=== PATIENT | male | born 1945 | race Caucasian/White ===

== ENCOUNTER → 2017-11-29 13:18 | Outpatient (CLI) | payer MEDICARE, SELFPAY ==
[2017-11-26 13:24] VITALS: TEMP 36.4
--- NOTE | 2017-11-29 13:20 | DI.US.S_ITS ---
PROCEDURE: US PERIPH VENOUS LOW EXTREM BI INDICATIONS: Multiple myeloma TECHNIQUE: Real-time imaging, as well as color and pulse Doppler interrogation, were performed of the deep veins of both legs from the inguinal ligament to the popliteal fossa. COMPARISON: None. FINDINGS: There is nonocclusive thrombus within the common femoral vein. The greater saphenous and profunda veins appear patent. Occlusive thrombus appears present within the popliteal and superficial femoral veins. IMPRESSION: Occlusive and nonocclusive thrombus present within the deep veins as above. Dictated by: Christina Suh M.D. on 11/29/2017 at 14:05 Approved by: Christina Suh M.D. on 11/29/2017 at 14:06
--- NOTE | 2017-11-29 16:55 | DI.CT.S_ITS ---
PROCEDURE: CT ANGIO CHEST PE PROTOCOL INDICATIONS: DYSPNEA TECHNIQUE: After the administration of intravenous contrast, 2 mm thick sections acquired from the pulmonary apices to the posterior costophrenic angles. 3-dimensional maximum intensity projection (MIP) coronal and sagittal reformats were then acquired through the thorax. For radiation dose reduction, the following was used: automated exposure control, adjustment of mA and/or kV according to patient size. COMPARISON: [facility], , PERIP VENOUS LOW EXTREM BI, 11/29/2017, 13:35. FINDINGS: Image quality: Excellent. Pulmonary arteries: There are filling defects within the pulmonary arteries bilaterally involving segmental and subsegmental branches within the right upper and lower lobes. On the left there are filling defects within the distal left pulmonary artery extending into segmental and subsegmental branches of the left lower lobe. Findings are consistent with pulmonary embolism. No pulmonary artery enlargement or leftward deviation of the interventricular septum to suggest right heart strain. Lungs and pleura: There is mild dependent atelectasis bilaterally. No definite peripheral wedge-shaped opacities to suggest pulmonary infarcts. No pleural effusions or pneumothorax. Central and peripheral airways are patent. Mediastinum: Heart size is normal, without pericardial effusion. No mediastinal or hilar adenopathy. Thoracic aorta is normal in caliber and enhancement. Esophagus is normal in caliber, without hiatal hernia. Bones and chest wall: No suspicious bony lesions. Ribs and thoracic spine appear intact throughout. No axillary or supraclavicular adenopathy. Abdomen: Visualized upper abdomen demonstrates small intermediate density filling defect within the gallbladder suggestive of noncalcified gallstones or biliary sludge. No gallbladder wall thickening or pericholecystic fluid. There is a nonobstructing stone in the visualized left kidney measuring 3-4 mm. 2 exophytic cysts are also demonstrated within the visualized left kidney. IMPRESSION: 1. Bilateral pulmonary embolism as described without evidence of right heart strain. Findings were discussed with LESIA Perea on 11/29/17 at 5:30 PM. Dictated by: Eduardo Quezada M.D. on 11/29/2017 at 17:21 Approved by: Eduardo Quezada M.D. on 11/29/2017 at 17:33
== END ==
PROVIDERS: Family Provider Family Medicine; PCP Family Medicine; Visit Provider Internal Medicine Hematology & Oncology
DX: I82.412 Acute embolism and thrombosis of left femoral vein (principal); C90.00 Multiple myeloma not having achieved remission; R06.00 Dyspnea, unspecified
CPT/HCPCS: 71275; 93970

== ENCOUNTER 2017-11-29 17:45 | Emergency (ER) | payer MEDICARE, SELFPAY ==
[2017-11-29] VITALS (8 sets, daily range): BP systolic 112–149; BP diastolic 66–101; PULSE 65–88; RESP 16–20; TEMP 36.8; O2SAT 95–100; BMI 37.3
--- NOTE | 2017-11-29 18:01 | ED.SOB ---
HPI - SOB/Dyspnea <Marcie Nick PA-C - Last Filed: 11/29/17 23:31> General Chief Complaint: Shortness of Breath/Dyspnea Stated Complaint: SOB,THINKS PE Time Seen by Provider: 11/29/17 17:57 Source: patient, family and old records reviewed Mode of arrival: ambulatory Limitations: no limitations History of Present Illness This 72-year-old male was sent directly from the [facility] today due to diagnosis of bilateral pulmonary emboli along with left DVT. He was sent to the ED mainly because he was not able to be directly admitted to the hospital. He carries a diagnosis of multiple myeloma. He also has a history of AFib that was ablated in the past and he is not on anticoagulant though has been on aspirin. He states that he has had ongoing fatigue since his diagnosis 7 months ago, has had intermittent dizziness. He states that his fatigue has been worse in the last week and he has poor exercise tolerance, however he has not had any dyspnea. He he was diagnosed with shingles on his right chest and back 7 weeks ago and has pain related to that, otherwise he states he has had no chest pain. He has not had any fever or syncope. He has had swelling in his left ankle which was noted a few days ago at routine Oncology follow-up. He has not had new pain in the extremities nor any other swelling noted. He denies wheeze, vomiting, or any other complaints on systems review, however oncology notes indicate near syncopal episodes and dyspnea. His notes he has seems somewhat short of breath Related Data Home Medications Medication Instructions Recorded Confirmed aspirin 325 mg PO QDAY #0 03/22/17 11/29/17 lisinopril 10 mg PO QDAY #0 03/22/17 11/29/17 metformin [Glucophage] 1,000 mg PO BIDCC #0 03/22/17 11/29/17 metoprolol tartrate 25 mg PO QDAY #0 03/22/17 11/29/17 insulin glargine [Lantus U-100 20 unit SQ QDAY #0 06/14/17 11/29/17 Insulin] torsemide 10 mg Q48H #0 09/06/17 11/29/17 gabapentin [Neurontin] 600 mg PO PRN PRN 11/26/17 11/29/17 Previous Rx's Medication Instructions Recorded allopurinol 300 mg PO QDAY #30 tab 05/10/17 dexamethasone 40 mg PO QWEEK #40 tab 05/10/17 acyclovir [Zovirax] 400 mg PO BID #120 tab 11/09/17 lenalidomide [Revlimid] 25 mg PO QDAY #21 cap 11/09/17 Allergies Allergy/AdvReac Type Severity Reaction Status Date / Time No Known Drug Allergies Allergy Verified 11/29/17 14:48 Review of Systems <Marcie Nick PA-C - Last Filed: 11/29/17 23:31> Review of Systems All systems reviewed & are unremarkable except as noted in HPI and below MDM - SOB/Dyspnea <Marcie Nick PA-C - Last Filed: 11/29/17 23:31> Lab Data Attestation: I reviewed the patient's lab results. Lab Results 11/29/17 Range/Units 14:25 PT 12.7 (10.1-12.7) SECONDS INR 1.2 (0.9-1.3) APTT 28 (26.4-36.2) SECONDS See labs from earlier today--reviewed/stable Imaging Data CT scan - chest: My impression: Radiologist's impression: Patient: Sadi Demarco MR#: [id number] : 1945 Acct:[id number] Age/Sex: 72 / M Date of Service: 11/29/17 Loc: Accession Number: [id number] Procedure: CT angio chest PE protocol Ordering Provider: Tim Wilcox M.D. PROCEDURE: CT ANGIO CHEST PE PROTOCOL INDICATIONS: DYSPNEA TECHNIQUE: After the administration of intravenous contrast, 2 mm thick sections acquired from the pulmonary apices to the posterior costophrenic angles. 3-dimensional maximum intensity projection (MIP) coronal and sagittal reformats were then acquired through the thorax. For radiation dose reduction, the following was used: automated exposure control, adjustment of mA and/or kV according to patient size. COMPARISON: [facility], , PERIP VENOUS LOW EXTREM BI, 11/29/2017, 13:35. FINDINGS: Image quality: Excellent. Pulmonary arteries: There are filling defects within the pulmonary arteries bilaterally involving segmental and subsegmental branches within the right upper and lower lobes. On the left there are filling defects within the distal left pulmonary artery extending into segmental and subsegmental branches of the left lower lobe. Findings are consistent with pulmonary embolism. No pulmonary artery enlargement or leftward deviation of the interventricular septum to suggest right heart strain. Lungs and pleura: There is mild dependent atelectasis bilaterally. No definite peripheral wedge-shaped opacities to suggest pulmonary infarcts. No pleural effusions or pneumothorax. Central and peripheral airways are patent. Mediastinum: Heart size is normal, without pericardial effusion. No mediastinal or hilar adenopathy. Thoracic aorta is normal in caliber and enhancement. Esophagus is normal in caliber, without hiatal hernia. Bones and chest wall: No suspicious bony lesions. Ribs and thoracic spine appear intact throughout. No axillary or supraclavicular adenopathy. Abdomen: Visualized upper abdomen demonstrates small intermediate density filling defect within the gallbladder suggestive of noncalcified gallstones or biliary sludge. No gallbladder wall thickening or pericholecystic fluid. There is a nonobstructing stone in the visualized left kidney measuring 3-4 mm. 2 exophytic cysts are also demonstrated within the visualized left kidney. IMPRESSION: 1. Bilateral pulmonary embolism as described without evidence of right heart strain. Findings were discussed with LESIA Perea on 11/29/17 at 5:30 PM. Dictated by: Eduardo Quezada M.D. on 11/29/2017 at 17:21 Approved by: Eduardo Quezada M.D. on 11/29/2017 at 17:33 <Marcelina Ybarra DO - Last Filed: 11/30/17 18:07> Lab Data Lab Results 11/29/17 Range/Units 14:25 PT 12.7 (10.1-12.7) SECONDS INR 1.2 (0.9-1.3) APTT 28 (26.4-36.2) SECONDS Discharge Plan Departure Patient Disposition: [facility] Clinical Impression: Pulmonary emboli Discharge Date/Time: 11/29/17 22:38 Interventions: ED Discharge Assessment Last Done: 11/29/17 22:32 Prescriptions: No Action aspirin 325 MG tablet 325 mg PO QDAY Qty: 0 RF: 0 lisinopril 10 MG tablet 10 mg PO QDAY Qty: 0 RF: 0 metformin [Glucophage] 1,000 MG tablet 1,000 mg PO BIDCC Qty: 0 RF: 0 metoprolol tartrate 25 MG tablet 25 mg PO QDAY Qty: 0 RF: 0 allopurinol 300 MG tablet 300 mg PO QDAY Qty: 30 RF: 0 dexamethasone 4 MG tablet 40 mg PO QWEEK Qty: 40 RF: 2 insulin glargine [Lantus U-100 Insulin] 100 UNIT/1 ML solution 20 unit SQ QDAY Qty: 0 RF: 0 torsemide 10 MG tablet 10 mg Q48H Qty: 0 RF: 0 acyclovir [Zovirax] 400 MG tablet 400 mg PO BID Qty: 120 RF: 0 lenalidomide [Revlimid] 25 MG capsule 25 mg PO QDAY Qty: 21 RF: 0 gabapentin [Neurontin] 600 MG tablet 600 mg PO PRN PRN (Reason: Pain) RF: 0 Referrals: Florencia Blake ARNP [Advanced Practioner Clinician] - Arnold Yanez MD [Primary Care Provider] -
[2017-11-29 18:28] LABS: INR 1.2 (0.9-1.3); Prothrombin Time 12.7 SECONDS (10.1-12.7)
[2017-11-29 18:31] LABS: PTT Partial Thromboplastin Tim 28 SECONDS (26.4-36.2)
--- NOTE | 2017-11-29 19:02 | ED_ITS ---
HPI - SOB/Dyspnea <Marcie Nick PA-C - Last Filed: 11/29/17 23:31> General Chief Complaint: Shortness of Breath/Dyspnea Stated Complaint: SOB,THINKS PE Time Seen by Provider: 11/29/17 17:57 Source: patient, family and old records reviewed Mode of arrival: ambulatory Limitations: no limitations History of Present Illness This 72-year-old male was sent directly from the [facility] today due to diagnosis of bilateral pulmonary emboli along with left DVT. He was sent to the ED mainly because he was not able to be directly admitted to the hospital. He carries a diagnosis of multiple myeloma. He also has a history of AFib that was ablated in the past and he is not on anticoagulant though has been on aspirin. He states that he has had ongoing fatigue since his diagnosis 7 months ago, has had intermittent dizziness. He states that his fatigue has been worse in the last week and he has poor exercise tolerance, however he has not had any dyspnea. He he was diagnosed with shingles on his right chest and back 7 weeks ago and has pain related to that, otherwise he states he has had no chest pain. He has not had any fever or syncope. He has had swelling in his left ankle which was noted a few days ago at routine Oncology follow-up. He has not had new pain in the extremities nor any other swelling noted. He denies wheeze, vomiting, or any other complaints on systems review, however oncology notes indicate near syncopal episodes and dyspnea. His notes he has seems somewhat short of breath Related Data Home Medications Medication Instructions Recorded Confirmed aspirin 325 mg PO QDAY #0 03/22/17 11/29/17 lisinopril 10 mg PO QDAY #0 03/22/17 11/29/17 metformin [Glucophage] 1,000 mg PO BIDCC #0 03/22/17 11/29/17 metoprolol tartrate 25 mg PO QDAY #0 03/22/17 11/29/17 insulin glargine [Lantus U-100 20 unit SQ QDAY #0 06/14/17 11/29/17 Insulin] torsemide 10 mg Q48H #0 09/06/17 11/29/17 gabapentin [Neurontin] 600 mg PO PRN PRN 11/26/17 11/29/17 Previous Rx's Medication Instructions Recorded allopurinol 300 mg PO QDAY #30 tab 05/10/17 dexamethasone 40 mg PO QWEEK #40 tab 05/10/17 acyclovir [Zovirax] 400 mg PO BID #120 tab 11/09/17 lenalidomide [Revlimid] 25 mg PO QDAY #21 cap 11/09/17 Allergies Allergy/AdvReac Type Severity Reaction Status Date / Time No Known Drug Allergies Allergy Verified 11/29/17 14:48 Review of Systems <Marcie Nick PA-C - Last Filed: 11/29/17 23:31> Review of Systems All systems reviewed & are unremarkable except as noted in HPI and below MDM - SOB/Dyspnea <Marcie Nick PA-C - Last Filed: 11/29/17 23:31> Lab Data Attestation: I reviewed the patient's lab results. Lab Results 11/29/17 Range/Units 14:25 PT 12.7 (10.1-12.7) SECONDS INR 1.2 (0.9-1.3) APTT 28 (26.4-36.2) SECONDS See labs from earlier today--reviewed/stable Imaging Data CT scan - chest: My impression: Radiologist's impression: Patient: Sadi Demarco MR#: [id number] : 1945 Acct:[id number] Age/Sex: 72 / M Date of Service: 11/29/17 Loc: Accession Number: [id number] Procedure: CT angio chest PE protocol Ordering Provider: Tim Wilcox M.D. PROCEDURE: CT ANGIO CHEST PE PROTOCOL INDICATIONS: DYSPNEA TECHNIQUE: After the administration of intravenous contrast, 2 mm thick sections acquired from the pulmonary apices to the posterior costophrenic angles. 3-dimensional maximum intensity projection (MIP) coronal and sagittal reformats were then acquired through the thorax. For radiation dose reduction, the following was used: automated exposure control, adjustment of mA and/or kV according to patient size. COMPARISON: [facility], , PERIP VENOUS LOW EXTREM BI, 11/29/2017, 13: 35. FINDINGS: Image quality: Excellent. Pulmonary arteries: There are filling defects within the pulmonary arteries bilaterally involving segmental and subsegmental branches within the right upper and lower lobes. On the left there are filling defects within the distal left pulmonary artery extending into segmental and subsegmental branches of the left lower lobe. Findings are consistent with pulmonary embolism. No pulmonary artery enlargement or leftward deviation of the interventricular septum to suggest right heart strain. Lungs and pleura: There is mild dependent atelectasis bilaterally. No definite peripheral wedge-shaped opacities to suggest pulmonary infarcts. No pleural effusions or pneumothorax. Central and peripheral airways are patent. Mediastinum: Heart size is normal, without pericardial effusion. No mediastinal or hilar adenopathy. Thoracic aorta is normal in caliber and enhancement. Esophagus is normal in caliber, without hiatal hernia. Bones and chest wall: No suspicious bony lesions. Ribs and thoracic spine appear intact throughout. No axillary or supraclavicular adenopathy. Abdomen: Visualized upper abdomen demonstrates small intermediate density filling defect within the gallbladder suggestive of noncalcified gallstones or biliary sludge. No gallbladder wall thickening or pericholecystic fluid. There is a nonobstructing stone in the visualized left kidney measuring 3-4 mm. 2 exophytic cysts are also demonstrated within the visualized left kidney. IMPRESSION: 1. Bilateral pulmonary embolism as described without evidence of right heart strain. Findings were discussed with LESIA Perea on 11/29/17 at 5:30 PM. Dictated by: Eduardo Quezada M.D. on 11/29/2017 at 17:21 Approved by: Eduardo Quezada M.D. on 11/29/2017 at 17:33 <Marcelina Ybarra DO - Last Filed: 11/30/17 18:07> Lab Data Lab Results 11/29/17 Range/Units 14:25 PT 12.7 (10.1-12.7) SECONDS INR 1.2 (0.9-1.3) APTT 28 (26.4-36.2) SECONDS Discharge Plan Departure Patient Disposition: [facility] Clinical Impression: Pulmonary emboli Discharge Date/Time: 11/29/17 22:38 Interventions: ED Discharge Assessment Last Done: 11/29/17 22:32 Prescriptions: No Action aspirin 325 MG tablet 325 mg PO QDAY Qty: 0 RF: 0 lisinopril 10 MG tablet 10 mg PO QDAY Qty: 0 RF: 0 metformin [Glucophage] 1,000 MG tablet 1,000 mg PO BIDCC Qty: 0 RF: 0 metoprolol tartrate 25 MG tablet 25 mg PO QDAY Qty: 0 RF: 0 allopurinol 300 MG tablet 300 mg PO QDAY Qty: 30 RF: 0 dexamethasone 4 MG tablet 40 mg PO QWEEK Qty: 40 RF: 2 insulin glargine [Lantus U-100 Insulin] 100 UNIT/1 ML solution 20 unit SQ QDAY Qty: 0 RF: 0 torsemide 10 MG tablet 10 mg Q48H Qty: 0 RF: 0 acyclovir [Zovirax] 400 MG tablet 400 mg PO BID Qty: 120 RF: 0 lenalidomide [Revlimid] 25 MG capsule 25 mg PO QDAY Qty: 21 RF: 0 gabapentin [Neurontin] 600 MG tablet 600 mg PO PRN PRN (Reason: Pain) RF: 0 Referrals: Florencia Blake ARNP [Advanced Practioner Clinician] - Arnold Yanez MD [Primary Care Provider] -
[2017-11-29] MEDS: HEPARIN 5,000 UNIT/ML VIAL 10000 UNIT IV (19:14)
[2017-11-29] MEDS: HEPARIN DRIP 25,000 UNIT/500 ML IV.SOLN 40 UNIT IV (19:56)
--- NOTE | 2017-11-29 20:08 | PC.NURSE ---
Heparin infusion double verified with RN Francisco
[2017-11-29] MEDS: LIDOCAINE PATCH 1 EACH ADH..PATCH 2 EACH TOP (21:17)
--- NOTE | 2017-11-29 21:46 | PC.NURSE ---
report given to La YUSUF at [facility]
--- NOTE | 2017-11-29 22:31 | PC.NURSE ---
report given to andriy YUSUF from EMS.
== END 2017-11-29 22:38 | disposition short-term general hospital (02) ==
PROVIDERS: Emergency Provider Internal Medicine; Family Provider Family Medicine; PCP Family Medicine
DX: I26.99 Other pulmonary embolism without acute cor pulmonale (principal)
CPT/HCPCS: 85610; 85730; 93041; 99283; J1644

== ENCOUNTER → 2017-12-27 14:33 | Outpatient (CLI) | payer MEDICARE, SELFPAY ==
[2017-12-27 15:20] LABS: Hematocrit 37.7 % (41-53); Hemoglobin 12.8 g/dL (13.5-17.5); Mean Corpuscular Hemoglobin 30.6 PG (26-34); Platelet Count 150 X10^3/uL (150-400); Red Blood Cell Count 4.18 X10^6/uL (4.5-5.9); Red Cell Distribution Width 17.9 % (11.6-14.8); White Blood Cell Count 5.4 X10^3/uL (4.5-11.0)
[2017-12-27 15:32] LABS: Alanine Aminotransferase 29 IU/L (21-72); Albumin 3.8 g/dL (3.5-5.0); Albumin Globulin Ratio 1.5 (1.0-2.8); Alkaline Phosphatase 98 U/L (38-126); Aspartate Aminotransferase 17 IU/L (17-59); Bilirubin Total 0.5 mg/dL (0.2-1.3); Blood Urea Nitrogen 18 mg/dL (9-20); Calcium 9.1 mg/dL (8.4-10.2); Carbon Dioxide 21 mmol/L (22-32); Chloride 105 mmol/L (98-107); Estimated Glomerular Filt Rate > 60.0 mL/min (>60); Globulin 2.5 g/dL (1.7-4.1); Glucose 134 mg/dL (80-110); HEMOLYSIS < 15 (0-50); Potassium 4.2 mmol/L (3.4-5.1); Sodium 140 mmol/L (137-145); Total Protein 6.3 g/dL (6.3-8.2)
[2017-12-27 15:37] LABS: Neutrophils Absolute Manual 3564 /uL (3000-5900); RBC Morphology Normal Morphology; Total Cells Counted 100
[2017-12-29 14:26] LABS: Free Kappa/ Lambda Ratio 18.44 (0.26-1.65); Free Lambda 9.3 mg/L (5.7-26.3)
[2017-12-31 07:56] LABS: Beta-2-Microglobulin 3.72 mg/L (< 2.52)
[2018-01-01 13:34] LABS: Albumin 3.6 g/dL (3.8-4.8); Alpha 1 Globulin 0.4 g/dL (0.2-0.3); Alpha 2 Globulin 0.7 g/dL (0.5-0.9); Beta 1 Globulin 0.4 g/dL (0.4-0.6); Gamma Globulin 0.2 g/dL (0.8-1.7); Protein, Total 5.7 g/dL (6.1-8.1)
--- NOTE | 2018-01-03 12:38 | ONC.NAV ---
Description: Revlimid Renewal Request Activity: Received fax from [facility] for pt's monthly Revlimid renewal. LESIA Perea completed it and OPHTHALMIC SURGEON faxed it back to [facility].
== END ==
PROVIDERS: Family Provider Family Medicine; PCP Family Medicine; Visit Provider Nurse Practitioner Gerontology
DX: C90.00 Multiple myeloma not having achieved remission (principal)
CPT/HCPCS: 36415; 80053; 82232; 83883; 84155; 84165; 85025

== ENCOUNTER → 2018-01-24 14:01 | Outpatient (CLI) | payer MEDICARE, SELFPAY ==
[2018-01-24 14:26] LABS: Add Manual Diff / Slide Review NO; Basophils Percent Auto 0.4 % (0-2); Eosinophils Percent Auto 2.9 % (2-4); Hematocrit 39.7 % (41-53); Hemoglobin 13.3 g/dL (13.5-17.5); Mean Corpuscular HGB Conc 33.6 % (30-36); Mean Corpuscular Hemoglobin 30.2 PG (26-34); Mean Corpuscular Volume 89.9 fL (80-100); Monocytes Percent Auto 11.8 % (3-14); Neutrophils Absolute Auto 3100 /uL (3000-5900); Neutrophils Percent Auto 63.9 % (50-75); Platelet Count 147 X10^3/uL (150-400); Red Blood Cell Count 4.41 X10^6/uL (4.5-5.9); Red Cell Distribution Width 16.5 % (11.6-14.8); White Blood Cell Count 4.8 X10^3/uL (4.5-11.0)
[2018-01-24 14:37] LABS: Alanine Aminotransferase 29 IU/L (21-72); Albumin 3.9 g/dL (3.5-5.0); Albumin Globulin Ratio 1.6 (1.0-2.8); Alkaline Phosphatase 93 U/L (38-126); Aspartate Aminotransferase 17 IU/L (17-59); Bilirubin Total 0.5 mg/dL (0.2-1.3); Blood Urea Nitrogen 22 mg/dL (9-20); Calcium 9.4 mg/dL (8.4-10.2); Carbon Dioxide 20 mmol/L (22-32); Chloride 105 mmol/L (98-107); Estimated Glomerular Filt Rate > 60.0 mL/min (>60); Globulin 2.4 g/dL (1.7-4.1); Glucose 137 mg/dL (80-110); HEMOLYSIS < 15 (0-50); Potassium 3.7 mmol/L (3.4-5.1); Sodium 139 mmol/L (137-145); Total Protein 6.3 g/dL (6.3-8.2)
[2018-01-27 16:37] LABS: Free Kappa Light Chain 191.4 mg/L (3.3-19.4); Free Kappa/ Lambda Ratio 20.79 (0.26-1.65); Free Lambda 9.2 mg/L (5.7-26.3)
[2018-01-28 00:09] LABS: Albumin 3.7 g/dL (3.8-4.8); Alpha 1 Globulin 0.3 g/dL (0.2-0.3); Alpha 2 Globulin 0.7 g/dL (0.5-0.9); Beta 1 Globulin 0.5 g/dL (0.4-0.6); Gamma Globulin 0.2 g/dL (0.8-1.7); Protein, Total 5.8 g/dL (6.1-8.1)
== END ==
PROVIDERS: Family Provider Family Medicine; PCP Family Medicine; Visit Provider Internal Medicine Hematology & Oncology
DX: C90.00 Multiple myeloma not having achieved remission (principal)
CPT/HCPCS: 36415; 80053; 83883; 84155; 84165; 85025

== ENCOUNTER → 2018-03-29 11:00 | Outpatient (CLI) | payer MEDICARE, SELFPAY ==
[2018-03-29 11:33] LABS: Add Manual Diff / Slide Review NO; Basophils Percent Auto 0.8 % (0-2); Eosinophils Percent Auto 2.3 % (2-4); Hematocrit 38.4 % (41-53); Hemoglobin 12.9 g/dL (13.5-17.5); Lymphocytes Percent Auto 15.7 % (25-40); Mean Corpuscular HGB Conc 33.7 % (30-36); Mean Corpuscular Hemoglobin 30.5 PG (26-34); Mean Corpuscular Volume 90.5 fL (80-100); Monocytes Percent Auto 7.4 % (3-14); Neutrophils Absolute Auto 2400 /uL (3000-5900); Neutrophils Percent Auto 73.8 % (50-75); Platelet Count 94 X10^3/uL (150-400); Red Blood Cell Count 4.24 X10^6/uL (4.5-5.9); Red Cell Distribution Width 17.5 % (11.6-14.8); White Blood Cell Count 3.3 X10^3/uL (4.5-11.0)
[2018-03-29 11:46] LABS: Alanine Aminotransferase 38 IU/L (21-72); Albumin 3.9 g/dL (3.5-5.0); Albumin Globulin Ratio 1.8 (1.0-2.8); Alkaline Phosphatase 86 U/L (38-126); Aspartate Aminotransferase 24 IU/L (17-59); BUN Creatinine Ratio 20.8 (6-22); Bilirubin Total 0.9 mg/dL (0.2-1.3); Blood Urea Nitrogen 25 mg/dL (9-20); Calcium 8.7 mg/dL (8.4-10.2); Carbon Dioxide 21 mmol/L (22-32); Chloride 105 mmol/L (98-107); Estimated Glomerular Filt Rate 59.3 mL/min (>60); Globulin 2.2 g/dL (1.7-4.1); Glucose 198 mg/dL (80-110); HEMOLYSIS < 15 (0-50); Lactate Dehydrogenase 421 U/L (313-618); Potassium 4.1 mmol/L (3.4-5.1); Sodium 138 mmol/L (137-145); Total Protein 6.1 g/dL (6.3-8.2)
[2018-03-29 12:05] LABS: Cholesterol 178 mg/dL (140-199); HDL Cholesterol 60 mg/dL (40-60); LDL Cholesterol Calculated 98 mg/dL (<100); Triglycerides 100 mg/dL (35-150)
--- NOTE | 2018-03-29 12:28 | PC.NURSE ---
Pre visit labs appear stable. Provider visit on 04/07
[2018-03-30 15:20] LABS: Free Kappa Light Chain 123.3 mg/L (3.3-19.4); Free Kappa/ Lambda Ratio 12.08 (0.26-1.65); Free Lambda 10.2 mg/L (5.7-26.3)
[2018-03-31 07:48] LABS: Beta-2-Microglobulin 3.72 mg/L (< 2.52)
[2018-04-02 09:08] LABS: Immunoglobulin A 150 mg/dL (81-463); Immunoglobulin G, Quantitative 176 mg/dL (694-1618); Immunoglobulin M, Quantitative 13 mg/dL (48-271)
[2018-04-02 14:02] LABS: Albumin 3.6 g/dL (3.8-4.8); Alpha 1 Globulin 0.3 g/dL (0.2-0.3); Alpha 2 Globulin 0.7 g/dL (0.5-0.9); Beta 1 Globulin 0.4 g/dL (0.4-0.6); Gamma Globulin 0.2 g/dL (0.8-1.7); Protein, Total 5.6 g/dL (6.1-8.1)
== END ==
PROVIDERS: Family Provider Family Medicine; PCP Family Medicine; Visit Provider Internal Medicine Hematology & Oncology
DX: E11.9 Type 2 diabetes mellitus without complications (principal)
CPT/HCPCS: 36415; 80053; 80061; 82232; 82784; 83036; 83615; 83883; 84155; 84165; 85025

== ENCOUNTER → 2018-04-25 14:12 | Outpatient (CLI) | payer MEDICARE, SELFPAY ==
[2018-04-25 15:16] LABS: Add Manual Diff / Slide Review NO; Basophils Percent Auto 0.5 % (0-2); Eosinophils Percent Auto 3.3 % (2-4); Hematocrit 36.6 % (41-53); Hemoglobin 12.5 g/dL (13.5-17.5); Lymphocytes Percent Auto 20.1 % (25-40); Mean Corpuscular HGB Conc 34.1 % (30-36); Mean Corpuscular Hemoglobin 30.8 PG (26-34); Mean Corpuscular Volume 90.3 fL (80-100); Monocytes Percent Auto 11.8 % (3-14); Neutrophils Absolute Auto 2200 /uL (3000-5900); Neutrophils Percent Auto 64.3 % (50-75); Platelet Count 109 X10^3/uL (150-400); Red Blood Cell Count 4.05 X10^6/uL (4.5-5.9); Red Cell Distribution Width 17.4 % (11.6-14.8); White Blood Cell Count 3.4 X10^3/uL (4.5-11.0)
[2018-04-25 15:38] LABS: Alanine Aminotransferase 37 IU/L (21-72); Albumin 3.7 g/dL (3.5-5.0); Albumin Globulin Ratio 1.7 (1.0-2.8); Alkaline Phosphatase 77 U/L (38-126); Aspartate Aminotransferase 23 IU/L (17-59); BUN Creatinine Ratio 19.2 (6-22); Bilirubin Total 0.5 mg/dL (0.2-1.3); Blood Urea Nitrogen 25 mg/dL (9-20); Calcium 9.4 mg/dL (8.4-10.2); Carbon Dioxide 22 mmol/L (22-32); Chloride 106 mmol/L (98-107); Estimated Glomerular Filt Rate 54.1 mL/min (>60); Globulin 2.2 g/dL (1.7-4.1); Glucose 115 mg/dL (80-110); HEMOLYSIS 17 (0-50); Lactate Dehydrogenase 418 U/L (313-618); Potassium 3.7 mmol/L (3.4-5.1); Sodium 141 mmol/L (137-145); Total Protein 5.9 g/dL (6.3-8.2)
[2018-04-27 13:39] LABS: Free Kappa/ Lambda Ratio 13.14 (0.26-1.65); Free Lambda 11.1 mg/L (5.7-26.3)
[2018-04-27 14:03] LABS: Immunoglobulin A 147 mg/dL (81-463); Immunoglobulin G, Quantitative 160 mg/dL (694-1618); Immunoglobulin M, Quantitative 12 mg/dL (48-271)
[2018-04-28 15:21] LABS: Beta-2-Microglobulin 4.33 mg/L (< 2.52)
[2018-04-29 15:34] LABS: Albumin 3.5 g/dL (3.8-4.8); Alpha 1 Globulin 0.4 g/dL (0.2-0.3); Alpha 2 Globulin 0.7 g/dL (0.5-0.9); Beta 1 Globulin 0.4 g/dL (0.4-0.6); Gamma Globulin 0.2 g/dL (0.8-1.7); Protein, Total 5.5 g/dL (6.1-8.1)
== END ==
PROVIDERS: Family Provider Family Medicine; PCP Family Medicine; Visit Provider Internal Medicine Hematology & Oncology
DX: C90.00 Multiple myeloma not having achieved remission (principal)
CPT/HCPCS: 36415; 80053; 82232; 82784; 83615; 83883; 84155; 84165; 85025

== ENCOUNTER → 2018-09-26 15:29 | Outpatient (CLI) | payer MEDICARE, SELFPAY | PROVIDERS: Family Provider Family Medicine; PCP Family Medicine; Visit Provider Internal Medicine Hematology & Oncology | DX: C90.00 Multiple myeloma not having achieved remission (principal); Z86.718 Personal history of other venous thrombosis and embolism; Z79.01 Long term (current) use of anticoagulants | CPT/HCPCS: 80053; 82232; 82784; 83615; 83883; 84155; 84165; 85025; 86334 ==

== ENCOUNTER → 2018-10-17 13:42 | Outpatient (CLI) | payer MEDICARE, SELFPAY | PROVIDERS: PCP Family Medicine; Visit Provider Internal Medicine Hematology & Oncology | DX: Z00.00 Encounter for general adult medical examination without abnormal findings (principal) | CPT/HCPCS: 83883 ==

== ENCOUNTER → 2018-12-26 13:24 | Outpatient (CLI) | payer MEDICARE, SELFPAY ==
[2018-12-26 13:57] LABS: Add Manual Diff / Slide Review NO; Basophils Absolute Auto 0 /uL (0-100); Basophils Percent Auto 0.4 % (0-2); Eosinophils Absolute Auto 0 /uL (0-450); Eosinophils Percent Auto 0.6 % (2-4); Hematocrit 42.4 % (41-53); Hemoglobin 14.5 g/dL (13.5-17.5); Lymphocytes Absolute Auto 1700 /uL (1100-4500); Lymphocytes Percent Auto 28.2 % (25-40); Mean Corpuscular HGB Conc 34.2 % (30-36); Mean Corpuscular Hemoglobin 32.5 PG (26-34); Monocytes Absolute Auto 400 /uL (0-900); Monocytes Percent Auto 6.6 % (3-14); Neutrophils Absolute Auto 3900 /uL (1500-7000); Neutrophils Percent Auto 64.2 % (50-75); Platelet Count 167 X10^3/uL (150-400); Red Blood Cell Count 4.46 X10^6/uL (4.5-5.9); Red Cell Distribution Width 15.2 % (11.6-14.8); White Blood Cell Count 6.1 X10^3/uL (4.5-11.0)
[2018-12-26 15:01] LABS: Alanine Aminotransferase 27 IU/L (21-72); Albumin 4.1 g/dL (3.5-5.0); Albumin Globulin Ratio 1.7 (1.0-2.8); Alkaline Phosphatase 73 U/L (38-126); Aspartate Aminotransferase 22 IU/L (17-59); BUN Creatinine Ratio 22.5 (6-22); Bilirubin Total 0.6 mg/dL (0.2-1.3); Blood Urea Nitrogen 27 mg/dL (9-20); Calcium 10.7 mg/dL (8.4-10.2); Carbon Dioxide 23 mmol/L (22-32); Chloride 106 mmol/L (98-107); Estimated Glomerular Filt Rate 59.2 mL/min (>60); Globulin 2.4 g/dL (1.7-4.1); Glucose 128 mg/dL (80-110); HEMOLYSIS < 15 (0-50); Lactate Dehydrogenase 368 U/L (313-618); Potassium 4.4 mmol/L (3.4-5.1); Sodium 139 mmol/L (137-145); Total Protein 6.5 g/dL (6.3-8.2)
[2018-12-28 13:53] LABS: Beta-2-Microglobulin 3.03 mg/L (< 2.52)
[2018-12-29 07:39] LABS: Immunoglobulin A 722 mg/dL (81-463); Immunoglobulin G, Quantitative 289 mg/dL (694-1618); Immunoglobulin M, Quantitative 19 mg/dL (48-271)
[2018-12-30 13:53] LABS: Albumin 3.9 g/dL (3.8-4.8); Alpha 1 Globulin 0.2 g/dL (0.2-0.3); Alpha 2 Globulin 0.6 g/dL (0.5-0.9); Beta 1 Globulin 0.5 g/dL (0.4-0.6); Gamma Globulin 0.3 g/dL (0.8-1.7); Protein, Total 6.3 g/dL (6.1-8.1)
[2018-12-30 16:02] LABS: Free Kappa Light Chain 532.8 mg/L (3.3-19.4)
== END ==
PROVIDERS: PCP Family Medicine; Visit Provider Internal Medicine Hematology & Oncology
DX: C90.00 Multiple myeloma not having achieved remission (principal)
CPT/HCPCS: 36415; 80053; 82232; 82784; 83615; 83883; 84155; 84165; 85025; 86334

== ENCOUNTER 2019-01-31 06:59 | Day surgery (SDC) | payer MEDICARE, SELFPAY ==
[2019-01-31] MEDS: PROPARACAINE 0.5% OPHTH SOL 2 DROPS EYE-OP (07:27)
[2019-01-31] MEDS: CATARACT EYE COMPOUND (10 DROPS/SYRINGE) 3 DROPS EYE-OP (07:34)
[2019-01-31 07:35] VITALS: BMI 29.8
[2019-01-31 07:50] VITALS: BP 147/89; PULSE 62; RESP 15; TEMP 36.3; O2SAT 96
--- NOTE | 2019-01-31 08:08 | PM.PREOP ---
Pre-operative Note Interval Note History & Physical reviewed/Exam performed by Physician: No Changes to H&P: No
--- NOTE | 2019-01-31 08:09 | PM.OP.1 ---
Operative Date/Time/Diagnoses Pre-op diagnosis: Nuclear Cataract Left eye Post-op diagnosis: same Procedure & Clinicians Surgeon: Walter Lorenz Anesthesia Type: MAC +/- and Sedation Operative Notes Procedure in detail: Patient brought to the operating suite. Tetracaine drops placed in the left eye. Patient was prepped and draped in sterile manner. Wire lid speculum was placed in the eye. Betadine drops were placed on the eye. This was irrigated. Lidocaine jelly was placed on the eye. A paracentesis port was created with a side-port blade. 0.1 mL 1% preservative free lidocaine was injected into the anterior chamber. The anterior chamber was deepened with viscoelastic. 2.6 mm keratome was used to create a temporal clear corneal incision. Cystotome and Utrata forceps were used to create continuous tear capsulorrhexis. Balanced salt solution was used to hydro dissect the nucleus. The phacoemulsification handpiece was inserted and the nucleus was removed using the stop and chop technique. The irrigation aspiration handpiece was inserted and the remaining cortex was removed. Anterior chamber was deepened with viscoelastic. An Mercedes [id number] intraocular lens with a power of 18.0 was injected into the capsular bag. Irrigation aspiration handpiece was inserted and the remaining viscoelastic was removed. Incision was hydrated with balanced salt solution and found to be leak free with pressure with Weck-Elaina sponges. 0.1 mL Vigamox injected anterior chamber. 0.3 mL Kenalog 10 mg was injected subconjunctivally. Lid speculum was removed. The patient left the operating room in excellent condition. Complications: none Condition: stable Disposition: same day surgery
[2019-01-31] MEDS: CHONDROIDTIN/SOD HYALURONATE 1.05 ML SYRINGE INTRAOCULA (08:31)
[2019-01-31] MEDS: TRIAMCINOLONE 50 MG/5 ML VIAL INJ (08:31)
[2019-01-31] MEDS: MOXIFLOXACIN OPHTH DROPS 3 ML BOTTLE 2 DROPS INJ (08:31)
[2019-01-31] MEDS: LIDOCAINE JELLY 2% 5 ML 1 APPLIC TOP (08:31)
[2019-01-31] MEDS: PHENYLEPHRINE/LIDOCAINE VIAL (OR) 0.2 ML EYE-OP (08:31)
[2019-01-31] MEDS: TETRACAINE 0.5% OPHTH DROPS 4 ML 2 DROPS EYE-OP (08:32)
[2019-01-31] MEDS: BALANCED SALT IRRIG SOLN NO.2 500 ML, EPINEPHrine 1 MG IRR (08:32)
[2019-01-31 08:45] VITALS: BP 128/82; PULSE 58; RESP 16; TEMP 36.3; O2SAT 97
[2019-01-31 09:00] VITALS: BP 127/80; PULSE 59; RESP 15; TEMP 36.3; O2SAT 95
== END 2019-01-31 09:05 | disposition home or self-care (01) ==
LOC: OR 07:01
PROVIDERS: Family Provider Family Medicine; PCP Family Medicine; Visit Provider Ophthalmology
PROC: (CPT 66984; principal; 2019-01-31 08:15)
DX: H25.12 Age-related nuclear cataract, left eye (principal); E11.9 Type 2 diabetes mellitus without complications
CPT/HCPCS: 66984; J0171; J2250; J3010; J3301

== ENCOUNTER 2019-02-14 06:21 | Day surgery (SDC) | payer MEDICARE, SELFPAY ==
[2019-02-14] MEDS: PROPARACAINE 0.5% OPHTH SOL 2 DROPS EYE-OP (07:05)
[2019-02-14] MEDS: CATARACT EYE COMPOUND (10 DROPS/SYRINGE) 3 DROPS EYE-OP (07:13)
[2019-02-14 07:15] VITALS: BMI 31.1
[2019-02-14 07:18] VITALS: BP 149/90; PULSE 56; RESP 16; TEMP 36.2; O2SAT 96
--- NOTE | 2019-02-14 07:41 | PM.PREOP ---
Pre-operative Note Interval Note History & Physical reviewed/Exam performed by Physician: No Changes to H&P: No
--- NOTE | 2019-02-14 07:41 | PM.OP.1 ---
Operative Date/Time/Diagnoses Pre-op diagnosis: Nuclear cataract right eye Procedure & Clinicians Procedure: Cataract Surgery Same procedure as scheduled: Yes Surgeon: Walter Lorenz Anesthesia Type: MAC +/- and Sedation Operative Notes Procedure in detail: Patient brought to the operating suite. Tetracaine drops placed in the right eye. Patient was prepped and draped in sterile manner. Wire lid speculum was placed in the eye. Betadine drops were placed on the eye. This was irrigated. Lidocaine jelly was placed on the eye. A paracentesis port was created with a side-port blade. 0.1 mL 1% preservative free lidocaine was injected into the anterior chamber. The anterior chamber was deepened with viscoelastic. 2.6 mm keratome was used to create a temporal clear corneal incision. Cystotome and Utrata forceps were used to create continuous tear capsulorrhexis. Balanced salt solution was used to hydro dissect the nucleus. The phacoemulsification handpiece was inserted and the nucleus was removed using the stop and chop technique. The irrigation aspiration handpiece was inserted and the remaining cortex was removed. Anterior chamber was deepened with viscoelastic. An Mercedes [id number] intraocular lens with a power of 18.0 was injected into the capsular bag. Irrigation aspiration handpiece was inserted and the remaining viscoelastic was removed. Incision was hydrated with balanced salt solution and found to be leak free with pressure with Weck-Elaina sponges. 0.1 mL Vigamox injected anterior chamber. 0.3 mL Kenalog 10 mg was injected subconjunctivally. Lid speculum was removed. The patient left the operating room in excellent condition. Complications: none Condition: stable Disposition: same day surgery
--- NOTE | 2019-02-14 07:54 | SUR.OPER ---
Supine on eye stretcher, head on extension cradle secured with tape. Arms tucked at sides with blanket. Pillow under knees.
[2019-02-14] MEDS: MOXIFLOXACIN OPHTH DROPS 3 ML BOTTLE 2 DROPS INJ (07:56)
[2019-02-14] MEDS: PHENYLEPHRINE/LIDOCAINE VIAL (OR) 0.2 ML EYE-OP (07:56)
[2019-02-14] MEDS: TRIAMCINOLONE 50 MG/5 ML VIAL INJ (07:56)
[2019-02-14] MEDS: TETRACAINE 0.5% OPHTH DROPS 4 ML 2 DROPS EYE-OP (07:57)
[2019-02-14] MEDS: LIDOCAINE JELLY 2% 5 ML 1 APPLIC TOP (07:57)
[2019-02-14] MEDS: CHONDROIDTIN/SOD HYALURONATE 1.05 ML SYRINGE INTRAOCULA (07:57)
[2019-02-14] MEDS: BALANCED SALT IRRIG SOLN NO.2 500 ML, EPINEPHrine 1 MG IRR (07:58)
[2019-02-14 08:10] VITALS: BP 130/79; PULSE 56; RESP 16; TEMP 36.2; O2SAT 97
== END 2019-02-14 08:16 | disposition home or self-care (01) ==
PROVIDERS: Family Provider Family Medicine; PCP Family Medicine; Visit Provider Ophthalmology
PROC: (CPT 66984; principal; 2019-02-14 07:45)
DX: H25.11 Age-related nuclear cataract, right eye (principal); E11.9 Type 2 diabetes mellitus without complications; Z79.4 Long term (current) use of insulin; Z86.711 Personal history of pulmonary embolism; I50.9 Heart failure, unspecified
CPT/HCPCS: 66984; J0171; J2250; J3301

== ENCOUNTER → 2019-02-22 10:07 | Outpatient (CLI) | payer MEDICARE, SELFPAY ==
[2019-02-22 11:05] LABS: Add Manual Diff / Slide Review NO; Basophils Absolute Auto 0 /uL (0-100); Basophils Percent Auto 0.3 % (0-2); Eosinophils Absolute Auto 0 /uL (0-450); Eosinophils Percent Auto 0.5 % (2-4); Hematocrit 43.9 % (41-53); Hemoglobin 14.7 g/dL (13.5-17.5); Lymphocytes Absolute Auto 1800 /uL (1100-4500); Mean Corpuscular HGB Conc 33.4 % (30-36); Mean Corpuscular Hemoglobin 32.6 PG (26-34); Mean Corpuscular Volume 97.6 fL (80-100); Monocytes Absolute Auto 400 /uL (0-900); Monocytes Percent Auto 7.8 % (3-14); Neutrophils Absolute Auto 3400 /uL (1500-7000); Neutrophils Percent Auto 59.4 % (50-75); Platelet Count 166 X10^3/uL (150-400); Red Cell Distribution Width 14.2 % (11.6-14.8); White Blood Cell Count 5.8 X10^3/uL (4.5-11.0)
[2019-02-22 11:20] LABS: Alanine Aminotransferase 27 IU/L (21-72); Albumin 4.1 g/dL (3.5-5.0); Albumin Globulin Ratio 1.4 (1.0-2.8); Alkaline Phosphatase 70 U/L (38-126); Aspartate Aminotransferase 28 IU/L (17-59); BUN Creatinine Ratio 22.1 (6-22); Bilirubin Total 0.7 mg/dL (0.2-1.3); Blood Urea Nitrogen 31 mg/dL (9-20); Calcium 10.6 mg/dL (8.4-10.2); Carbon Dioxide 24 mmol/L (22-32); Chloride 102 mmol/L (98-107); Estimated Glomerular Filt Rate 49.5 mL/min (>60); Globulin 2.9 g/dL (1.7-4.1); Glucose 137 mg/dL (80-110); HEMOLYSIS < 15 (0-50); Potassium 4.5 mmol/L (3.4-5.1); Sodium 138 mmol/L (137-145)
[2019-02-24 12:47] LABS: Free Kappa Light Chain 749.1 mg/L (3.3-19.4); Free Kappa/ Lambda Ratio 114.02 (0.26-1.65); Free Lambda 6.6 mg/L (5.7-26.3)
[2019-02-24 14:10] LABS: Immunoglobulin A 878 mg/dL (20-320)
[2019-02-25 14:18] LABS: Abnormal Protein Band 1 0.7 g/dL (NONE DETECTED); Albumin 3.8 g/dL (3.8-4.8); Alpha 1 Globulin 0.2 g/dL (0.2-0.3); Alpha 2 Globulin 0.6 g/dL (0.5-0.9); Beta 1 Globulin 0.5 g/dL (0.4-0.6); Gamma Globulin 0.6 g/dL (0.8-1.7); Protein, Total 6.3 g/dL (6.1-8.1)
== END ==
PROVIDERS: Family Provider Family Medicine; PCP Family Medicine
DX: C90.00 Multiple myeloma not having achieved remission (principal)
CPT/HCPCS: 36415; 80053; 82784; 83883; 84155; 84165; 85025; 86334

== ENCOUNTER → 2019-05-26 13:50 | Outpatient (CLI) | payer MEDICARE, SELFPAY ==
--- NOTE | 2019-05-26 | DI.ECHO.S_ITS ---
[facility] +---------+ : : [address] : [place] : : : : [phone] : : : : Phone: [phone]+ Echocardiogram Report + + :Name: KAYLEN VASQUEZ Study Date: 05/26/2019 Height: 76 in : :[facility] Weight: 251 lb : : Gender: Male BSA: 2.4 m2 : :: 1945 Age: 73 yrs BP: 132/82 mmHg: :Reason For Study: Aortic, Descending Aneurysm : :Ordering Physician: Molly Dickerson : :Pj Carballo Performed By: Bonita Cordero : :Referring: Dr. Arnold Yanez : + + Interpretation Summary 1) Mildly increased left ventricular thickness (concentric), wall motion, and systolic function (EF 55-60%). 2) The right ventricle is mildly dilated. The right ventricular systolic function is normal. 3) No significant valvular abnormalities. 4) The aortic root is borderline dilated at 4.0cm. 5) There is mild luminal irregularity and echogenicity in the abdominal aorta, suggestive of aortic atherosclerotic disease. 6) Compared to the Echo done 09/06/2017, no significant change. Procedure: A two-dimensional transthoracic echocardiogram with color flow and Doppler was performed. The study quality was technically adequate. Comparison is made with the echocardiogram of 2-12-18. The patient was in normal sinus rhythm during the exam. Left Ventricle: The left ventricle is normal in size. There is mild concentric left ventricular hypertrophy. The ejection fraction is estimated to be 55-60%. Left ventricular systolic function is normal without focal wall motion abnormalities. Diastolic function could not be accurately assessed due to unobtainable data. Right Ventricle: The right ventricle is mildly dilated. The right ventricular systolic function is normal. Atria: The left atrium is moderately dilated. Right atrial size is normal. The interatrial septum is intact with no evidence for an atrial septal defect. Mitral Valve: The mitral valve leaflets are mildly calcified. There is mild mitral annular calcification. There is trace mitral regurgitation. Aortic Valve: The aortic valve is trileaflet. The aortic valve opens well. There is mild aortic valve sclerosis. There is no aortic valve stenosis. No aortic regurgitation is present. Tricuspid Valve: The tricuspid valve is normal in structure and function. No tricuspid regurgitation. Pulmonic Valve: The pulmonic valve is normal in structure and function. There is trace pulmonic regurgitation. Great Vessels: The aortic root is borderline dilated. The ascending aorta is at the upper limits of normal in size. The aortic arch is at the upper limits of normal in size. There is mild luminal irregularity and echogenicity in the abdominal aorta, suggestive of aortic atherosclerotic disease. The IVC is of normal diameter and collapses greater than 50% with a sniff. This suggests a low right atrial pressure of 3 mm Hg. Pericardium/ Pleura There is no pericardial effusion. There is no pleural effusion. MMode/2D Measurements & Calculations LVIDd: 5.0 cm Ao root diam: 4.0 cm LVIDs: 3.1 cm Aortic Jxn: 3.2 cm FS: 36.5 % asc Aorta Diam: 3.9 cm EPSS: 0.79 cm Ao Arch Diam (Prox Trans): 3.4 cm IVSd: 1.1 cm LVPWd: 1.1 cm LV bryant. diameter/BSA (cm/m^2): 2.0 LV sys. diameter/BSA (cm/m^2): 1.3 LA dimension: 4.5 cm RA long axis: 5.0 cm LA A2 area: 28.0 cm2 RA area: 19.1 cm2 LA A4 area: 22.4 cm2 RA vol: 61.4 ml LA length (vol): 5.1 cm RA : 25.2 ml/m2 LA vol: 104.9 ml IVC diam: 1.8 cm LA vol index: 43.0 ml/m2 RVDd major: 5.7 cm RVD1 (basal): 4.6 cm RVD2 (mid): 4.7 cm Doppler Measurements & Calculations Ao V2 max: 132.5 cm/sec MV E max bill: 43.1 cm/sec Ao V2 mean: 85.9 cm/sec MV A max bill: 83.9 cm/sec Ao max P.0 mmHg MV E/A: 0.51 Ao mean P.5 mmHg Med Peak E' Bill: 3.2 cm/sec Ao V2 VTI: 27.1 cm E/E' med: 13.6 Lat Peak E' Bill: 2.9 cm/sec E/E' lat: 14.6 E/e' average: 14.1 MV dec time: 0.35 sec MV P1/2t: 103.8 msec PA V2 max: 63.0 cm/sec MV P1/2t max bill: 43.5 cm/sec PA V2 mean: 40.9 cm/sec MVA(P1/2t): 2.1 cm2 PA mean P.78 mmHg PA Accel Time: 0.15 sec Reading Physician:03:55 PM
== END ==
PROVIDERS: Family Provider Family Medicine; PCP Family Medicine; Visit Provider Internal Medicine Cardiovascular Disease
DX: I77.810 Thoracic aortic ectasia (principal)
CPT/HCPCS: 93306

== ENCOUNTER → 2019-07-11 14:20 | Outpatient (CLI) | payer MEDICARE, SELFPAY ==
--- NOTE | 2019-07-11 14:23 | DI.MRI.S_ITS ---
PROCEDURE: MR THORACIC SPINE WO CON INDICATIONS: Thoracic radiculopathy due to herpes zoster TECHNIQUE: Noncontrast sagittal T1 spine echo and T2 fast spin echo, sagittal STIR, axial T1 and T2 fast spin echo through the thoracic spine. COMPARISON: None. FINDINGS: Image quality: Excellent. Alignment and Curvature: There is normal bony alignment. Bone Marrow: Marrow is of normal overall signal. No acute vertebral body compression fractures. Mild old compressions of T6, T7, T11, and T12. Spinal Cord: Visualized spinal cord is normal in size and signal. Paraspinous Soft Tissues: No paravertebral masses. Miscellaneous: Facet and ligament hypertrophy results in bilateral foraminal narrowing spanning from T6-T7 through T10-T11. At T10-T11, there is a combination of a right foraminal disc protrusion/extrusion and facet hypertrophy resulting in severe right foraminal narrowing and impingement on the right T10 nerve root. There is mild central canal stenosis secondary to facet and ligament hypertrophy. IMPRESSION: 1. Multilevel facet and ligament hypertrophy results in multilevel bilateral foraminal narrowing from T6-T7 through T10-T11. 2. At T10-T11, there is also right foraminal disc protrusion/extrusion which contributes to severe right foraminal stenosis and right T10 nerve root impingement. 3. Multiple mild chronic osteoporotic compressions. Dictated by: Van Mendez M.D. on 07/11/2019 at 15:57 Approved by: Van Mendez M.D. on 07/11/2019 at 16:06
== END ==
PROVIDERS: PCP Family Medicine; Visit Provider Physical Medicine & Rehabilitation
DX: M51.14 Intervertebral disc disorders with radiculopathy, thoracic region (principal); C90.00 Multiple myeloma not having achieved remission; B02.29 Other postherpetic nervous system involvement; M48.04 Spinal stenosis, thoracic region
CPT/HCPCS: 72146

== ENCOUNTER 2019-08-31 10:43 | Outpatient (CLI) | payer MEDICARE, SELFPAY ==
[2019-08-31] VITALS (10 sets, daily range): BP systolic 113–154; BP diastolic 58–89; PULSE 50–75; RESP 16–18; TEMP 36.3; O2SAT 92–100
--- NOTE | 2019-08-31 | DI.RAD.S_ITS ---
PROCEDURE: PAIN C/T TRANFORAMINAL INJECT INDICATIONS: Radiculopathy, thoracic region FINDINGS: Fluoroscopic spot filming was performed to verify placement of spinal needles at the T6-T7 level(s), as labeled on the films. Appropriate location(s) of the needle tip(s) was confirmed by injection of iodinated contrast. Dictated by: Demetri Maloney M.D. on 08/31/2019 at 12:21 Approved by: Demetri Maloney M.D. on 08/31/2019 at 12:21
[2019-08-31] MEDS: MIDAZOLAM 5 MG/5 ML VIAL IV (11:36)
[2019-08-31] MEDS: fentaNYL 100 MCG/2 ML INJ 50 MCG IV (11:36)
[2019-08-31] MEDS: BUPIVACAINE 0.25% (PF) VIAL 2 ML INJ (11:49)
[2019-08-31] MEDS: IOPAMIDOL 15 ML VIAL 3 ML INJ (11:49)
[2019-08-31] MEDS: DEXAMETHASONE 10 MG/ML VIAL 20 MG INJ (11:50)
--- NOTE | 2019-08-31 11:51 | PC.NURSE ---
ASSISTING PT OFF TABLE AND TRANSPORTING TO POST PROC AREA IN STABLE CONDITION. PASSING RN CARE OF PT OFF TO CRISTIAN Evans RN.
--- NOTE | 2019-08-31 11:52 | P.PCN_ITS ---
Procedures Date/Time Date of procedure: 08/31/19 Time of procedure: 11:53 General Procedure description: PREOP DIAGNOSIS 1. FORMAINAL STENOSIS WITH LE SYMPTOMS, POST OP DIAGNOSIS 1. FORMAINAL STENOSIS WITH LE SYMPTOMS, PROCEDURES 1. FLUOROSCOPICALLY GUIDED CONTRAST CONTROLLED TRANSFORAMINAL EPIDURAL STEROID INJECTION - RIGHT T6/7 TFESI PHYSICIAN: Burke Granger, DO INDICATIONS Sadi is referred by Dr. Yanez for treatment of Foraminal Stenosis with Right thoracic Symptoms FINDINGS Foraminal Nerve Root Compression secondary to disc disease and facet hypertrophy DESCRIPTION OF PROCEDURE Following review of allergy and review of potential side effects and complications, including, but not necessarily limited to, infection, allergic reaction, local tissue breakdown, stroke, temporary or permanent nerve injury, paralysis, and possible , the patient indicated that the patient understood and agreed to proceed. An informed consent document was signed by the patient, witnessed by a nurse, and placed in the patient's chart. Additionally, other treatment options including medications, modalities, and physical therapy were reviewed with the patient. After review of previous anaesthesic history and IV conscious sedation the patient was deemed safe to proceed with todays procedure with IV conscious sedation as ASA class II designation. Safety time-out was performed to confirm patient ID, procedure to be performed and site of procedure. IV sedation was accomplished with a combination of 3mg of Versed and 50mcg of Fentanyl was administered by the RN after DO order, titrated to patient comfort during the course of the procedure while the patient remained responsive to all verbal commands In the prone position following sterile prep and drape of the lumbar region, the right T6/7 posterior neuroforamen was identified fluoroscopically. The skin was anesthetized via a 25-gauge 1.5-inch needle with 1% lidocaine solution. At this point, a 25-gauge 3.5-inch spinal needle was atraumatically introduced and adv anced under fluoroscopic guidance through the posterior right T6/7 neuroforamen to approximately the anterior aspect of the canal. Depth was confirmed on lateral view. Following negative aspiration, injection of approximately 1.5 cc of Isovue 200 under live fluoroscopy in the AP view confirmed excellent flow along the nerve root, into the epidural space without vascular or intrathecal uptake observed Radiological data, including multiple fluoroscopic views reveal the needle placement in the right T6/7 posterior neuroforamen. Subsequent views show flow of contrast material flowing superiorly and inferiorly along the nerve root confirming epidural flow. Subsequently, a test dose of 1.5 cc of 0.25% marcaine solution was administered and patient was observed for signs or symptoms of complications, including abdominal pain, shortness of breath, bilateral upper or lower extremity weakness, nausea and vomiting, prior to steroid injection. At this point, a total of 3cc or 30mg of dexamethasone was injected without incident. The procedure tolerated the procedure well without signs or symptoms of complications prior to transfer to the recovery area continued monitoring without incident.The patient was then transferred to the recovery area where they were observed for an appropriate time after the injection. The patient reported a VAS score of 7 prior to the procedure and a post- procedure VAS of 0. Total Fluoroscopy Time: 17 seconds Total Conscious Sedation Time: 24min POST OP INSTRUCTIONS The patient was provided a Pain Log to continue to record their response to the target-specific procedure prior to follow-up visit with their referring physician. Additionally, specific post-injection care instructions and a contact number to our office were provided if concerns arise regarding possible complications associated with the procedure are suspected. Burke Granger DO Complications: none
--- NOTE | 2019-08-31 13:57 | PC.NURSE ---
pt returned post procedure via [facility]. Alert he easily transferred from w/c to chair. Resumed monitoring from Ana Rosa YUSUF
== END 2019-08-31 12:15 | disposition home or self-care (01) ==
LOC: RAD 10:44
PROVIDERS: PCP Family Medicine; Referring Provider Physical Medicine & Rehabilitation; Visit Provider Physical Medicine & Rehabilitation
DX: M48.04 Spinal stenosis, thoracic region (principal); M51.14 Intervertebral disc disorders with radiculopathy, thoracic region
CPT/HCPCS: 64479; 99152; J0702; J1100; J2250; J3010

== ENCOUNTER 2019-10-03 13:15 | Outpatient (CLI) | payer MEDICARE, SELFPAY ==
[2019-10-03] VITALS (7 sets, daily range): BP systolic 112–137; BP diastolic 71–87; PULSE 55–59; RESP 16–17; O2SAT 96–100
--- NOTE | 2019-10-03 13:48 | DI.RAD.S_ITS ---
PROCEDURE: PAIN C/T TRANFORAMINAL INJECT INDICATIONS: RADICULOPATHY FINDINGS: Fluoroscopic spot filming was performed to verify placement of spinal needles at the right T3-T4 neural foramen for transforaminal epidural steroid injection , as labeled on the films. Appropriate location(s) of the needle tip(s) was confirmed by injection of iodinated contrast. IMPRESSION: Successful needle tip localization on the right at the neural foramen external os, for transforaminal epidural steroid injection. Dictated by: Cordell Kendall M.D. on 10/03/2019 at 16:27 Approved by: Cordell Kendall M.D. on 10/03/2019 at 16:28
[2019-10-03] MEDS: fentaNYL 100 MCG/2 ML INJ 50 MCG IV (14:00)
[2019-10-03] MEDS: MIDAZOLAM 5 MG/5 ML VIAL IV (14:00)
[2019-10-03] MEDS: IOPAMIDOL 15 ML VIAL 3 ML INJ (14:04)
[2019-10-03] MEDS: DEXAMETHASONE 10 MG/ML VIAL 30 MG INJ (14:04)
[2019-10-03] MEDS: BUPIVACAINE 0.25% (PF) VIAL 2 ML INJ (14:04)
--- NOTE | 2019-10-03 14:13 | PC.NURSE ---
ASSISTING PT OFF TABLE AND TRANSPORTING TO POST PROC AREA IN STABLE CONDITION. PASSING RN CARE OF PT OFF TO ARMANDO Pro RN.
--- NOTE | 2019-10-03 14:18 | P.PCN_ITS ---
Procedures Date/Time Date of procedure: 10/03/19 Time of procedure: 14:18 General Procedure description: PREOP DIAGNOSIS 1. FORMAINAL STENOSIS WITH LE SYMPTOMS, POST OP DIAGNOSIS 1. FORMAINAL STENOSIS WITH LE SYMPTOMS, PROCEDURES 1. FLUOROSCOPICALLY GUIDED CONTRAST CONTROLLED TRANSFORAMINAL EPIDURAL STEROID INJECTION - RIGHT T3/4 TFESI PHYSICIAN: Burke Granger, DO INDICATIONS Sadi is referred by Dr. Yanez for treatment of Foraminal Stenosis with Right thoracic Symptoms FINDINGS Foraminal Nerve Root Compression secondary to disc disease and facet hypertrophy DESCRIPTION OF PROCEDURE Following review of allergy and review of potential side effects and complications, including, but not necessarily limited to, infection, allergic reaction, local tissue breakdown, stroke, temporary or permanent nerve injury, paralysis, and possible , the patient indicated that the patient understood and agreed to proceed. An informed consent document was signed by the patient, witnessed by a nurse, and placed in the patient's chart. Additionally, other treatment options including medications, modalities, and physical therapy were reviewed with the patient. After review of previous anaesthesic history and IV conscious sedation the patient was deemed safe to proceed with todays procedure with IV conscious sedation as ASA class II designation. Safety time-out was performed to confirm patient ID, procedure to be performed and site of procedure. IV sedation was accomplished with a combination of 2mg of Versed and 50mcg of Fentanyl was administered by the RN after DO order, titrated to patient comfort during the course of the procedure while the patient remained responsive to all verbal commands In the prone position following sterile prep and drape of the lumbar region, the right T3/4 posterior neuroforamen was identified fluoroscopically. The skin was anesthetized via a 25-gauge 1.5-inch needle with 1% lidocaine solution. At this point, a 25-gauge 3.5-inch spinal needle was atraumatically introduced and adv anced under fluoroscopic guidance through the posterior right T3/4 neuroforamen to approximately the anterior aspect of the canal. Depth was confirmed on lateral view. Following negative aspiration, injection of approximately 1.5 cc of Isovue 200 under live fluoroscopy in the AP view confirmed excellent flow along the nerve root, into the epidural space without vascular or intrathecal uptake observed Radiological data, including multiple fluoroscopic views reveal the needle placement in the right T3/4 posterior neuroforamen. Subsequent views show flow of contrast material flowing superiorly and inferiorly along the nerve root confirming epidural flow. Subsequently, a test dose of 1.5 cc of 1% lidocaine solution was administered and patient was observed for signs or symptoms of complications, including abdominal pain, shortness of breath, bilateral upper or lower extremity weakness, nausea and vomiting, prior to steroid injection. At this point, a total of 3cc or 30mg of dexamethasone was injected without incident. The procedure tolerated the procedure well without signs or symptoms of complications prior to transfer to the recovery area continued monitoring without incident.The patient was then transferred to the recovery area where they were observed for an appropriate time after the injection. The patient reported a VAS score of 7 prior to the procedure and a post- procedure VAS of 0. Total Fluoroscopy Time: 20 seconds Total Conscious Sedation Time: 24min POST OP INSTRUCTIONS The patient was provided a Pain Log to continue to record their response to the target-specific procedure prior to follow-up visit with their referring physician. Additionally, specific post-injection care instructions and a contact number to our office were provided if concerns arise regarding possible complications associated with the procedure are suspected. Burke Granger DO Complications: none
--- NOTE | 2019-10-03 14:24 | PC.NURSE ---
1425: Received patient awake and alert, VSS upon arrival. No c/o pain. Transferred from WC to chair with minimal assist by MADELIN Oseguera.
--- NOTE | 2019-10-04 16:55 | PC.NURSE ---
FOLLOW UP CALL MADE. SPOKE WITH HIS WHO REPORTS THAT PT STATES HE FEELS GOOD AND STATES THAT PAIN IS DECREASED. DENIES QUESTIONS/CONCERNS. ENCOURAGED PT TO CONTINUE WITH PAIN LOG AND TO BRING IT TO FOLLOW-UP APPT. VERBALIZED UNDERSTANDING.
== END 2019-10-03 14:30 | disposition home or self-care (01) ==
LOC: RAD 13:16
PROVIDERS: PCP Family Medicine; Referring Provider Physical Medicine & Rehabilitation; Visit Provider Physical Medicine & Rehabilitation
DX: M48.04 Spinal stenosis, thoracic region (principal); M51.14 Intervertebral disc disorders with radiculopathy, thoracic region
CPT/HCPCS: 64479; 99152; J1100; J2250; J3010

== ENCOUNTER → 2019-10-18 14:35 | Outpatient (CLI) | payer MEDICARE, SELFPAY ==
[2019-10-18 15:10] LABS: Add Manual Diff / Slide Review NO; Basophils Absolute Auto 0 /uL (0-100); Eosinophils Absolute Auto 100 /uL (0-450); Eosinophils Percent Auto 1.9 % (2-4); Hematocrit 38.7 % (41-53); Hemoglobin 13.2 g/dL (13.5-17.5); Lymphocytes Absolute Auto 1200 /uL (1100-4500); Lymphocytes Percent Auto 34.5 % (25-40); Mean Corpuscular HGB Conc 34.1 % (30-36); Mean Corpuscular Hemoglobin 32.6 PG (26-34); Mean Corpuscular Volume 95.7 fL (80-100); Monocytes Absolute Auto 400 /uL (0-900); Monocytes Percent Auto 11.8 % (3-14); Neutrophils Absolute Auto 1800 /uL (1500-7000); Neutrophils Percent Auto 50.8 % (50-75); Platelet Count 122 X10^3/uL (150-400); Red Blood Cell Count 4.04 X10^6/uL (4.5-5.9); Red Cell Distribution Width 16.4 % (11.6-14.8); White Blood Cell Count 3.6 X10^3/uL (4.5-11.0)
[2019-10-18 15:23] LABS: Alanine Aminotransferase 29 IU/L (<50); Albumin 3.7 g/dL (3.5-5.0); Albumin Globulin Ratio 1.3 (1.0-2.8); Alkaline Phosphatase 93 U/L (38-126); Aspartate Aminotransferase 23 IU/L (17-59); BUN Creatinine Ratio 15.7 (6-22); Bilirubin Total 0.5 mg/dL (0.2-1.3); Blood Urea Nitrogen 19 mg/dL (9-20); Calcium 8.8 mg/dL (8.4-10.2); Carbon Dioxide 22 mmol/L (22-32); Chloride 108 mmol/L (98-107); Estimated Glomerular Filt Rate 58.5 mL/min (>60); Globulin 2.9 g/dL (1.7-4.1); Glucose 116 mg/dL (80-110); HEMOLYSIS < 15 (0-50); Potassium 3.9 mmol/L (3.4-5.1); Sodium 140 mmol/L (137-145); Total Protein 6.6 g/dL (6.3-8.2)
[2019-10-19 05:35] LABS: Immunoglobulin A 759 mg/dL (61-437); Immunoglobulin G, Quantitative 228 mg/dL (700-1600)
[2019-10-20 14:36] LABS: Albumin 3.2 g/dL (2.9-4.4); Alpha-1-Globulin 0.2 g/dL (0.0-0.4); Alpha-2-Globulin 0.6 g/dL (0.4-1.0); Gamma Globulin 0.3 g/dL (0.4-1.8); Globulin Total 2.3 g/dL (2.2-3.9); Protein, Total 5.5 g/dL (6.0-8.5)
[2020-02-04 13:48] LABS: Free Kappa Lt Chains, Serum 1047.8; Free Lambda Lt Chains,Serum 6.3
== END ==
PROVIDERS: PCP Family Medicine; Referring Provider Internal Medicine Hematology & Oncology; Visit Provider Internal Medicine Hematology & Oncology
DX: C90.00 Multiple myeloma not having achieved remission (principal)
CPT/HCPCS: 36415; 80053; 82784; 83883; 84155; 84165; 85025

== ENCOUNTER → 2019-11-23 14:17 | Outpatient (CLI) | payer MEDICARE, SELFPAY ==
[2019-11-23 14:40] LABS: Add Manual Diff / Slide Review NO; Basophils Absolute Auto 0 /uL (0-100); Basophils Percent Auto 1.1 % (0-2); Eosinophils Absolute Auto 100 /uL (0-450); Eosinophils Percent Auto 1.5 % (2-4); Hematocrit 38.6 % (41-53); Hemoglobin 12.9 g/dL (13.5-17.5); Lymphocytes Absolute Auto 1500 /uL (1100-4500); Lymphocytes Percent Auto 38.7 % (25-40); Mean Corpuscular HGB Conc 33.4 % (30-36); Mean Corpuscular Hemoglobin 32.1 PG (26-34); Mean Corpuscular Volume 96.1 fL (80-100); Monocytes Absolute Auto 500 /uL (0-900); Monocytes Percent Auto 12.6 % (3-14); Neutrophils Absolute Auto 1800 /uL (1500-7000); Neutrophils Percent Auto 46.1 % (50-75); Platelet Count 135 X10^3/uL (150-400); Red Blood Cell Count 4.02 X10^6/uL (4.5-5.9); Red Cell Distribution Width 16.6 % (11.6-14.8); White Blood Cell Count 3.9 X10^3/uL (4.5-11.0)
[2019-11-23 15:03] LABS: Alanine Aminotransferase 30 IU/L (<50); Albumin 3.9 g/dL (3.5-5.0); Albumin Globulin Ratio 1.3 (1.0-2.8); Alkaline Phosphatase 85 U/L (38-126); Aspartate Aminotransferase 25 IU/L (17-59); BUN Creatinine Ratio 17.3 (6-22); Bilirubin Total 0.5 mg/dL (0.2-1.3); Blood Urea Nitrogen 23 mg/dL (9-20); Calcium 9.8 mg/dL (8.4-10.2); Carbon Dioxide 23 mmol/L (22-32); Chloride 107 mmol/L (98-107); Estimated Glomerular Filt Rate 52.4 mL/min (>60); Glucose 107 mg/dL (80-110); HEMOLYSIS < 15 (0-50); Potassium 4.1 mmol/L (3.4-5.1); Sodium 138 mmol/L (137-145); Total Protein 6.9 g/dL (6.3-8.2)
[2019-11-27 13:08] LABS: Immunoglobulin A, Serum 991 mg/dL (61-437); Immunoglobulin G,Serum 210 mg/dL (603-1613); Immunoglobulin M, Serum 10 mg/dL (15-143)
[2019-11-27 15:23] LABS: Albumin 3.2 g/dL (2.9-4.4); Alpha-1-Globulin 0.3 g/dL (0.0-0.4); Alpha-2-Globulin 0.7 g/dL (0.4-1.0); Gamma Globulin 0.3 g/dL (0.4-1.8); Globulin Total 2.8 g/dL (2.2-3.9)
== END ==
PROVIDERS: PCP Family Medicine; Referring Provider Internal Medicine Hematology & Oncology; Visit Provider Internal Medicine Hematology & Oncology
DX: C90.00 Multiple myeloma not having achieved remission (principal)
CPT/HCPCS: 36415; 80053; 82784; 84155; 84165; 85025; 86334

== ENCOUNTER → 2019-12-26 13:42 | Outpatient (CLI) | payer MEDICARE, SELFPAY ==
--- NOTE | 2019-12-26 13:45 | DI.RAD.S_ITS ---
PROCEDURE: XR BONE SURVEY INDICATIONS: multiple myeloma TECHNIQUE: Multiple views obtained of various bony structures as described below. COMPARISON: [facility], , BONE SURVEY ADULT METS, 05/03/2017, 15:27. FINDINGS: Skull (lateral): No suspicious bony lesions. No fractures. Thoracic spine (AP, lateral): No suspicious bony lesions. No acute vertebral body compression fractures. Lumbar spine (AP, lateral): No suspicious bony lesions. No acute vertebral body compression fractures. Pelvis (AP): No suspicious bony lesions. No fractures. Overlying soft tissues appear unremarkable. Right and left humeri (AP): No suspicious bony lesions. No fractures. Overlying soft tissues appear unremarkable. Right and left femurs (AP): No suspicious bony lesions. No fractures. Overlying soft tissues appear unremarkable. IMPRESSION: No lytic lesions found. Dictated by: Cordell Kendall M.D. on 12/26/2019 at 15:40 Approved by: Cordell Kendall M.D. on 12/26/2019 at 15:41
== END ==
PROVIDERS: PCP Family Medicine; Referring Provider Internal Medicine Hematology & Oncology; Visit Provider Internal Medicine Hematology & Oncology
DX: C90.00 Multiple myeloma not having achieved remission (principal)
CPT/HCPCS: 77075

== ENCOUNTER → 2020-01-19 13:33 | Outpatient (CLI) | payer MEDICARE, SELFPAY ==
[2020-01-22 08:39] LABS: COVID19 Sendout Not Detected (Not Detect)
== END ==
PROVIDERS: PCP Family Medicine; Visit Provider Physician Assistant
DX: Z01.812 Encounter for preprocedural laboratory examination (principal)
CPT/HCPCS: 87635

== ENCOUNTER 2020-01-22 09:27 | Day surgery (SDC) | payer MEDICARE, SELFPAY ==
[2020-01-22] VITALS (9 sets, daily range): BP systolic 106–129; BP diastolic 52–79; PULSE 55–64; RESP 9–20; TEMP 36.3–36.7; O2SAT 94–99; BMI 29.9
[2020-01-22] MEDS: LACTATED RINGERS 1,000 ML 42 ML IV (10:01)
--- NOTE | 2020-01-22 10:24 | PM.HP.1 ---
History of Present Illness History of Present Illness Date Patient Seen: 01/22/20 Time Patient Seen: 10:25 Chief complaint: [id number] Narrative: The patient is a gentleman with multiple myeloma. IV chemotherapy is planned and a request was made to place a port. he has never had 1 before. 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 He has had ablation of the cardiac lesion but continues to be anticoagulated on Eliquis. His last dose was Wednesday night. 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 (Acute) Thrombocytopenia (Acute) Surgical History History of cardiac radiofrequency ablation (Resolved) History of right cataract extraction (Acute 02/14/19) Family & Social History Social History: household members spouse Tobacco & Substance use: Smoking Status Never smoker alcohol intake frequency a few times a month Substance Use Type does not use Meds Home Medications and Allergies Home Medications Medication Instructions Recorded Confirmed Type metformin [Glucophage] 1,000 mg PO BIDCC #0 03/22/17 01/22/20 History Lantus U-100 Insulin 26 unit SQ QDAY #0 06/14/17 01/22/20 History torsemide 20 mg PO DAILY #0 09/06/17 01/17/20 History potassium chloride 10 meq PO DAILY 05/05/18 01/17/20 History gabapentin 1,200 mg PO DAILY 08/11/18 01/22/20 History carvedilol 6.25 mg PO BID 02/08/19 01/22/20 History apixaban [Eliquis] 2.5 mg PO BID #60 tab 07/18/19 01/22/20 Rx dexamethasone 12 mg PO WEEKLY #40 tab 08/09/19 01/22/20 Rx lorazepam 0.5 mg tablet 0.5 mg PO BEDTIME PRN #30 tab 08/16/19 01/17/20 Rx acyclovir 800 mg PO BID 90 Days #180 tab 12/28/19 01/22/20 Rx Allergies Allergy/AdvReac Type Severity Reaction Status Date / Time No Known Drug Allergies Allergy Verified 01/22/20 09:43 Review of Systems Review of Systems Narrative: Patient has no chest pain at this time no cough or cold. No black or bloody bowel movements. Glucose is well controlled this morning his glucose is 119. Exam Vital Signs (past 8 hours): - 01/22/20 09:54 Temperature 97.3 F L Pulse Rate 58 L Respiratory Rate 20 Blood Pressure 129/79 Pulse Oximetry 99 Oxygen Delivery Method Room Air Narrative Exam Narrative: Patient is in no apparent distress. There are no nodes in his neck or supraclavicular areas. No masses in the neck. Trachea is midline mobile. Thyroid is not enlarged. Lungs are clear to auscultation without rales or rhonchi equal percussion. Heart regular rate and rhythm without murmur gallop. No heave lift or thrill. Abdomen is mildly protuberant soft nontender without mass. Patient is alert and oriented x3. Speech rate and content are appropriate affect is appropriate. Assessment & Plan Assessment & Plan narrative: Patient is a gentleman request was made for Port-A-Cath. His multiple myeloma. He is thrombocytopenic [place] [address] a left IJ Port-A-Cath. I have discussed the procedure with him. Risks of bleeding, infection which is an ongoing risk, blood clots or pulmonary embolism and lung collapse all discussed with him. He appears to understand and wishes to proceed.
[2020-01-22] MEDS: CLINDAMYCIN 900 MG/50 ML PIGGYBACK 50 MG IV (10:31)
--- NOTE | 2020-01-22 10:34 | PM.PREOP ---
Pre-operative Note COVID-19 COVID-19 status: Negative Result date/Date tested (Pos, Neg/Pending): 01/19/20 Interval Note History & Physical reviewed/Exam performed by Physician: Yes Changes to H&P: No
[2020-01-22] MEDS: LIDOCAINE 1% 30 ML INJ (11:08)
[2020-01-22] MEDS: HEPARIN 5,000 UNIT, SODIUM CHLORIDE 0.9% 50 ML IV (11:09)
--- NOTE | 2020-01-22 11:36 | DI.RAD.S_ITS ---
PROCEDURE: XR CHEST 1V INDICATIONS: PORT A CATH INSERTION TECHNIQUE: One view of the chest was acquired. COMPARISON: [facility], , CHEST 2 VIEW, 09/12/2015, 12:57. FINDINGS: Surgical changes and devices: Left Port-A-Cath is present with distal tip projecting over the distal SVC/right atrial junction. Lungs and pleura: Increased pulmonary vascularity is present. There is unchanged elevation of the left hemidiaphragm. Mediastinum: Mediastinal contours appear normal. Heart size is normal. Bones and chest wall: No suspicious bony lesions. Overlying soft tissues appear unremarkable. IMPRESSION: Port-A-Cath as above. Increased vascularity suggestive of edema. Dictated by: Christina Suh M.D. on 01/22/2020 at 17:28 Approved by: Christina Suh M.D. on 01/22/2020 at 17:29
--- NOTE | 2020-01-22 11:51 | PM.OP.1 ---
Operative Date/Time/Diagnoses Date of procedure: 01/22/20 Time of procedure: 11:51 Pre-op diagnosis: Multiple myeloma Post-op diagnosis: same Procedure & Clinicians Procedure: Placement left internal jugular Port-A-Cath. Same procedure as scheduled: Yes Indications: Need for IV access for chemotherapy. Limited peripheral access at present. Surgeon: Andrea Freed Click Yes if Unassisted: Yes Anesthesia Type: General Operative Notes Findings: Tip near the junction of the SVC and atrium upon completion. In recovery room the tip it slipped back into the atrium based on postoperative check stat x-ray. This may self correct once the patient stands and is upright. Closure Type: primary Specimen(s): none sent Prosthetic devices, grafts, tissues, transplants, or devices: High profile Port-A-Cath Estimated Blood Loss (mL): 15 Blood products transfused: none Procedure in detail: The patient was placed supine on the operating room table and underwent general LMA anesthesia. Roll was placed between his shoulders and he was prepped and draped in the usual fashion. Local anesthetic was infiltrated in a field block fashion in the infraclavicular fossa. Transverse incision was made and a pocket created. I identified the internal jugular vein which was clearly patent. Had normal compressibility. I a numbed in a skin fold overlying it and made a transverse incision. 22 gauge finer needle was used to confirm that this was indeed the internal jugular vein. Then the larger needle was inserted and guidewire passed over it. The guidewire in a was left in place and the needle removed. I then passed a catheter from the incision on the chest to the incision on the neck. I widened the neck incision slightly so that there would be an easy turn in the catheter. I then passed the dilator and introducer over the guidewire. The guidewire and dilator removed leaving the introducer in place. The catheter was passed through it and the introducer peeled away leaving the catheter in place. I backed it out so that the tip was near the junction of the superior vena cava and atrium. I then flushed the tube being with heparinized saline and connected it to the port. The port was placed in the cavity. On evaluation the catheter it slips slightly into the atrium. I increased the size of the cavity and slipped the port down further on to the chest. I then secured it to the chest wall with interrupted silk sutures. The catheter in. I aspirated and flushed the port and catheter. It aspirated easily. The subcu both locations. The skin was closed in both locations killers dressings were applied and the patient was awakened and taken to the recovery room. There were no apparent complications. Complications: none Post-operative Condition: stable Disposition: PACU Plan for aftercare: Follow-up in the office.
--- NOTE | 2020-01-22 12:54 | SUR.PHASEII ---
brought back, d/c instructions discussed, Dr. Freed had been to p't bedside and spoke with him.
--- NOTE | 2020-01-22 13:11 | SUR.PHASEII ---
Pt ready to left in stable condition.
--- NOTE | 2020-01-22 14:33 | SUR.PHASEII ---
Late entrY: skin tear to l hand cleansed with saline and an allevyn dressing placed. informed of dressing good for 3 days.
--- NOTE | 2020-01-22 15:10 | SUR.PHASEI ---
1154 late entry Pt to PACU with occlusive dressing on back of left hand with blood under the dressing. Anesthesia stated that they noticed a skin tear after transferring him onto the table. Pt also had on yellow colored band on left 4th finger.
== END 2020-01-22 13:05 | disposition home or self-care (01) ==
PROVIDERS: PCP Family Medicine; Referring Provider Specialist; Visit Provider Specialist
DX: C90.00 Multiple myeloma not having achieved remission (principal); Z45.2 Encounter for adjustment and management of vascular access device; I48.91 Unspecified atrial fibrillation; I50.9 Heart failure, unspecified; Z86.718 Personal history of other venous thrombosis and embolism; Z79.01 Long term (current) use of anticoagulants; E11.9 Type 2 diabetes mellitus without complications; Z79.4 Long term (current) use of insulin; D69.6 Thrombocytopenia, unspecified
CPT/HCPCS: 36561; 71045; 76000; C1788; J1644; J2405; J2704; J3010

== ENCOUNTER 2020-01-29 12:51 | Emergency (ER) | payer MEDICARE, SELFPAY ==
[2020-01-29] VITALS (28 sets, daily range): BP systolic 133–174; BP diastolic 61–110; PULSE 63–125; RESP 17–36; TEMP 36.4–36.9; O2SAT 2–100; BMI 29.8
[2020-01-29] MEDS: ALBUTEROL 1.25 MG/3 ML NEB (PEDIATRIC) INH (13:00)
[2020-01-29] MEDS: ALBUTEROL 2.5 MG/3 ML NEB (ADULT) INH (13:11)
--- NOTE | 2020-01-29 13:12 | DI.RAD.S_ITS ---
PROCEDURE: XR CHEST 1V INDICATIONS: SOB , Chemo reaction TECHNIQUE: One view of the chest was acquired. COMPARISON: [facility], CR, XR CHEST 1V, 01/22/2020, 12:04. FINDINGS: Surgical changes and devices: A left-sided Port-A-Cath central line is identified with the tip overlying the atrial caval junction. Lungs and pleura: Lungs are clear. No pleural effusions or pneumothorax. The aeration of the lungs is similar to the prior study. Mediastinum: Mediastinal contours appear normal. Heart size is normal. Bones and chest wall: No suspicious bony lesions. Overlying soft tissues appear unremarkable. IMPRESSION: Stable chest. No acute cardiopulmonary process is evident. Dictated by: Dixon Montoya M.D. on 01/29/2020 at 13:36 Approved by: Dixon Montoya M.D. on 01/29/2020 at 13:37
--- NOTE | 2020-01-29 13:17 | RT ---
Initial neb pulled by MADELIN Martínez under override
[2020-01-29 13:28] LABS: Alanine Aminotransferase 26 IU/L (<50); Albumin 3.7 g/dL (3.5-5.0); Albumin Globulin Ratio 0.9 (1.0-2.8); Alkaline Phosphatase 97 U/L (38-126); Aspartate Aminotransferase 58 IU/L (17-59); BUN Creatinine Ratio 17.3 (6-22); Bilirubin Total 0.6 mg/dL (0.2-1.3); Blood Urea Nitrogen 33 mg/dL (9-20); Calcium 10.2 mg/dL (8.4-10.2); Carbon Dioxide 21 mmol/L (22-32); Chloride 106 mmol/L (98-107); Creatine Kinase 196 U/L (55-170); Estimated Glomerular Filt Rate 34.5 mL/min (>60); Globulin 3.9 g/dL (1.7-4.1); Glucose 173 mg/dL (80-110); HEMOLYSIS < 15 (0-50); Sodium 138 mmol/L (137-145); Total Protein 7.6 g/dL (6.3-8.2)
[2020-01-29 13:34] LABS: Hematocrit 29.9 % (41-53); Hemoglobin 10.2 g/dL (13.5-17.5); Mean Corpuscular HGB Conc 34.2 % (30-36); Mean Corpuscular Hemoglobin 32.2 PG (26-34); Mean Corpuscular Volume 94.2 fL (80-100); Red Blood Cell Count 3.17 X10^6/uL (4.5-5.9); Red Cell Distribution Width 16.1 % (11.6-14.8)
[2020-01-29 13:37] LABS: White Blood Cell Count 0.8 X10^3/uL (4.5-11.0)
[2020-01-29 13:38] LABS: Add Manual Diff / Slide Review YES; Platelet Count 22 X10^3/uL (150-400)
[2020-01-29 13:40] LABS: NT-proBNP (BNP-Adult 18+) 688 pg/mL (<450)
[2020-01-29 13:42] LABS: Troponin I 0.146 ng/mL (0.01-0.034)
[2020-01-29 13:43] LABS: Creatine Kinase MB 1.99 ng/mL (<2.37)
[2020-01-29 13:48] LABS: Neutrophils Absolute Manual 416 /uL (3000-5900); Nucleated Red Blood Cells 3 #/Diff; Total Cells Counted 25
[2020-01-29 13:49] LABS: Anisocytosis 1+; Poikilocytosis 1+
[2020-01-29 13:54] LABS: Bacteria Urine None Seen; RBC Urine None Seen (0-5/HPF); WBC Urine None Seen (0-5/HPF)
[2020-01-29] MEDS: LORazepam 2 MG/ML INJ 0.5 MG IV (13:56)
[2020-01-29] MEDS: ASPIRIN 81 MG CHEW TAB 324 MG PO (13:57)
[2020-01-29 14:10] LABS: Amorphous Sediment Urine 1+; Culture Indicated Urine Cult Not Indicated
[2020-01-29 14:23] LABS: Troponin I 0.149 ng/mL (0.01-0.034)
[2020-01-29 14:39] LABS: PCO2 ABG 25.2 mmHg (35-45); pH ABG 7.45 (7.35-7.45)
[2020-01-29 14:41] LABS: Fractionated Inspired Oxygen 21; HCO3 ABG 18 mmol/L (22-26); Oxygen Saturation ABG 94 % (95-100); PO2 ABG 66 mmHg (80-100); TCO2 ABG 18 mmol/L (21-31)
--- NOTE | 2020-01-29 14:46 | ED.ALLEREA ---
HPI - Allergic Reaction General Chief complaint: Allergic Reaction Stated complaint: Reaction to Chemo Therapy Drug Time Seen by Provider: 01/29/20 13:06 Source: EMS Mode of arrival: EMS Limitations: no limitations History of Present Illness HPI narrative: CC: Acute allergic reraction, anaphylaxis HPI: The patient is a 74-year-old male who has a history of multiple myeloma and was in his oncologist's office, Dr. Ron. He was administered 50 ml of DARATUUMAB and became immediately short of breath with wheezing coughing. He was administered IV Benadryl 50 mg IV Solu-Medrol 125 mg in IV Lasix 20 mg because they thought he was in congestive heart failure. The patient has a history of arm cardiomyopathy and atrial fibrillation for which she has had arm ablations. He has been doing well since the ablation. He is on Eliquis as an anticoagulant. According to his this is the 1st time the patient has received this medication. He was transported immediately by the paramedics to the emergency department. The patient complained of shortness of breath cough without any chest pain. He was nauseous but had no abdominal pain vomiting diarrhea incontinence of urine or stool. He has had no urinary symptoms. He denies any fever chills or sweats. He admits to a history of congestive heart failure COPD hypertension and diabetes mellitus. He denies a history of myocardial infarction asthma or stroke. Related Data Home Medications Medication Instructions Recorded Confirmed metformin [Glucophage] 1,000 mg PO BIDCC #0 03/22/17 01/22/20 Lantus U-100 Insulin 26 unit SQ QDAY #0 06/14/17 01/22/20 torsemide 20 mg PO DAILY #0 09/06/17 01/17/20 potassium chloride 10 meq PO DAILY 05/05/18 01/17/20 gabapentin 1,200 mg PO DAILY 08/11/18 01/22/20 carvedilol 6.25 mg PO BID 02/08/19 01/22/20 Previous Rx's Medication Instructions Recorded Eliquis 2.5 mg PO BID #60 tab 07/18/19 lorazepam 0.5 mg tablet 0.5 mg PO BEDTIME PRN #30 tab 08/16/19 acyclovir 800 mg PO BID 90 Days #180 tab 12/28/19 hydrocodone-acetaminophen [Clarita] 1 tab PO Q4H PRN #7 tab 01/22/20 dexamethasone 12 mg PO WEEKLY #40 tab 01/25/20 ondansetron HCl [Zofran] 4 mg PO Q6H #60 tab 01/25/20 diltiazem HCl [Cardizem CD] 120 mg PO DAILY #30 cap 01/29/20 Allergies Allergy/AdvReac Type Severity Reaction Status Date / Time daratumumab Allergy Severe Difficulty Verified 01/29/20 13:48 Breathing Review of Systems Review of Systems Narrative: His review of systems were all negative except for those mentioned in the history of present illness. 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 (Acute) Thrombocytopenia (Acute) Surgical History History of cardiac radiofrequency ablation (Resolved) History of right cataract extraction (Acute 02/14/19) Social History household members: spouse Smoking Status: Never smoker Smoking Status: Never smoker alcohol intake frequency: a few times a month Substance Use Type: does not use Exam Narrative Exam Narrative: PHYSICAL EXAM: CONSTITUTIONAL: Awake, Alert, Oriented, quiet in acute respiratory distress. His skin is diffusely mottled and appear cyanotic.. HEAD: AT/NC EENT: PERRL, FROM of eyes. Conjunctivae were not injected. NOSE:No epistaxis or nasal drainage MOUTH:Oral mucosa is moist and pink, posterior pharynx is without erythema or exudate. NECK: Supple, no obvious JVD, Trachea is midline without stridor, no palpable LN. SPINE: Palpation of the cervical, Thoracic, Lumbar or Sacral spine reveals no gross deformity or tenderness. No CVA tenderness. THORAX: No deformity, retractions, chest wall tenderness. LUNGS: Markedly decreased breath sounds with a few faint fine expiratory wheezes. Patient was not moving much air. HEART: Normal heart tones, regular rhythm tachycardic in a soft systolic murmur along the left sternal border. ABDOMEN: Soft, non-tender,no guarding, rebound, rigidity or palpable mass. EXTREMITIES: No edema, deformity, tenderness or cyanosis. SKIN: No rash, bruising, NEURO: Awake, alert, oriented, conversive, cranial nerves II-XII are symmetrical , moves all 4 extremities and is ambulatory. MENTAL HEALTH: The patient appears acutely anxious. Initial Vital Signs Initial Vital Signs: Vital Signs Pulse Rate 107 H 01/29/20 13:06 Respiratory Rate 30 H 01/29/20 13:06 Pulse Oximetry 98 01/29/20 13:06 Course Course Course Narrative: 1430; the patient's arterial blood gases on FiO2 of 21% room air revealed a pH is 7.456 a pCO2 of 25.2 a PO2 of 66 and oxygen saturation 94%. Bicarb was 17.7 total CO2 18 Radiology reviewed the patient's chest x-ray and it was negative for any acute cardiopulmonary pathology or congestive heart failure. His troponin was repeated at 1:00 a.m. after the original which was no different. We are going to redraw it at the full 2 hours to see if there is any significant difference arm. It is unknown what is causing the patient's troponin to be elevated and will need to review the patient's chemotherapy to see if it affects the Do causes elevated troponins. 1544: His actual 2 hour troponin remains pending. 1600 Dr. Ron was paged to discuss the patient. His repeat troponin was 0.123. His EKG shows a normal axis sinus rhythm ventricular rate is 84. There are no acute diagnostic ST segment changes. Patient has nonspecific ST segment changes in V1, he has inverted T-wave in lead V1. 1629: Dr. Rodriguez was called to discuss the patient. The patient has significant thrombocytopenia as well as leukopenia. White blood count is 800 and his platelets are 22,000 with an elevated troponin. 1653: I discussed the patient with Dr. Rodriguez will not accept the patient until I discussed the patient with Cardiology and possibly Nephrology. In the old records I do not see with the patient has had a creatinine of 1.3. 1728 I discussed the patient with Dr. Maloney in 1 of his partners. They believe that his arm pancytopenia, neutropenia and thrombocytopenia secondary to his underlying disease multiple myeloma. His elevated troponin may be due to his renal failure however it seems to be a little bit higher than normally expected arm with renal insufficiency. Dr. Moreno has been paged to discuss his elevated troponin. 1747: The patient in the past has seen Dr. Carballo. The patient is not having any chest pain. He has renal insufficiency. He has no acute diagnostic ST segment changes. Dr. solorzano will says that he has a cardiomyopathy and as long as he is not in acute congestive heart failure not having chest pain this is probably secondary to his renal insufficiency and he can go home. 1800 as the patient was being discharged to monitor revealed that he had atrial fibrillation up 124. An EKG was obtained at 6:12 p.m. which revealed a possible sinus tachycardia with premature atrial contractures. On another monitor it looks as though the patient has atrial fibrillation. His QTC is prolonged at 522 milliseconds axis is left QRS is 82 milliseconds p.r. interval is 190 milliseconds. The patient will be given a prescription for Cardizem CD 120mg to control his heart rate until he can be seen and re-evaluated by Dr. Carballo Orders Ordered: ED Orders 01/29/20 13:07 Complete Blood Count AUTO DIFF Stat Comprehensive Metabolic Panel Stat NT-proBNP (BNP-Adult 18+) Stat Trop I [Troponin I] Stat Troponin & CK Cardiac Panel Stat 01/29/20 13:10 Urine Microscopic Stat 01/29/20 13:12 XR chest 1V Stat EKG-12 Lead Stat 01/29/20 13:47 EKG-12 Lead Stat 01/29/20 14:18 Arterial Blood Gas Stat 01/29/20 15:11 Troponin I Stat 01/29/20 18:09 EKG-12 Lead Stat Discontinued Medications Albuterol (Proventil) 1.25 mg INH NOW ONE Stop: 01/29/20 13:04 Last Admin: 01/29/20 13:00 Dose: 1.25 mg Documented by: YUDITHALSTO Albuterol (Ventolin) 2.5 mg INH NOW ONE Stop: 01/29/20 13:10 Last Admin: 01/29/20 13:11 Dose: 2.5 mg Documented by: RRALSTO Albuterol (Proventil) 5 mg INH NOW ONE Stop: 01/29/20 13:09 Last Admin: 01/29/20 14:27 Dose: Not Given Documented by: KPEARSO Aspirin (Aspirin Chew) 324 mg PO NOW ONE Stop: 01/29/20 13:48 Last Admin: 01/29/20 13:57 Dose: 324 mg Documented by: ADORE Diltiazem HCl (Cardizem Cd) 120 mg PO NOW ONE Stop: 01/29/20 18:18 Last Admin: 01/29/20 18:31 Dose: 120 mg Documented by: FIONA Heparin Sodium (Porcine) (Heparin Flush (Port)) 500 unit IV PRN PRN PRN Reason: Flush Last Admin: 01/29/20 16:40 Dose: 500 unit Documented by: FIONA Lorazepam (Ativan) 0.5 mg IV NOW ONE Stop: 01/29/20 13:47 Last Admin: 01/29/20 13:56 Dose: 0.5 mg Documented by: ADORE Vital Signs Vital signs: Vital Signs - 8 hr 01/29/20 13:06 01/29/20 13:09 01/29/20 13:19 Temperature 98.4 F Pulse Rate 107 H 125 H 81 Respiratory Rate 30 H 36 H 34 H Blood Pressure 145/81 H 159/100 H Pulse Oximetry 98 96 100 01/29/20 13:20 01/29/20 13:30 01/29/20 13:38 Temperature Pulse Rate 94 H 90 91 H Respiratory Rate 32 H 34 H Blood Pressure 174/106 H 134/92 H Pulse Oximetry 100 92 97 01/29/20 13:40 01/29/20 13:45 01/29/20 13:46 Temperature Pulse Rate 98 H 83 83 Respiratory Rate 24 27 H 25 H Blood Pressure 173/110 H 159/79 H 148/70 H Pulse Oximetry 98 97 97 01/29/20 13:47 01/29/20 13:50 01/29/20 13:55 Temperature Pulse Rate 82 84 Respiratory Rate 24 28 H Blood Pressure 146/82 H 149/87 H Pulse Oximetry 97 97 2 L 01/29/20 14:00 01/29/20 14:01 01/29/20 14:10 Temperature Pulse Rate 84 84 76 Respiratory Rate 25 H 26 H 29 H Blood Pressure 146/89 H 148/67 H Pulse Oximetry 98 99 98 01/29/20 14:41 01/29/20 15:00 01/29/20 15:15 Temperature Pulse Rate 81 86 82 Respiratory Rate 17 25 H 23 Blood Pressure 133/70 140/67 142/69 H Pulse Oximetry 95 97 97 01/29/20 15:30 01/29/20 15:45 01/29/20 16:00 Temperature Pulse Rate 110 H 77 89 Respiratory Rate 25 H 28 H 23 Blood Pressure 141/82 H 134/64 143/75 H Pulse Oximetry 97 97 96 01/29/20 16:30 01/29/20 16:47 01/29/20 17:00 Temperature Pulse Rate 97 H 92 H 92 H Respiratory Rate 21 30 H 24 Blood Pressure 147/76 H 133/81 134/73 Pulse Oximetry 96 98 96 01/29/20 17:15 01/29/20 17:30 01/29/20 17:45 Temperature Pulse Rate 81 63 80 Respiratory Rate 20 21 26 H Blood Pressure 143/75 H 149/80 H 135/63 Pulse Oximetry 95 96 97 01/29/20 18:50 Temperature 97.6 F Pulse Rate 75 Respiratory Rate 20 Blood Pressure 141/61 H Pulse Oximetry 97 MDM - Allergic Reaction Medical Records Attestation: I reviewed the patient's medical records. Lab Data Attestation: I reviewed the patient's lab results. Result diagrams: 01/29/20 13:07 01/29/20 13:07 Labs: Lab Results 01/29/20 01/29/20 01/29/20 Range/Units 13:07 13:07 13:07 WBC 0.8 L* D (4.5-11.0) X10^3/uL RBC 3.17 L (4.5-5.9) X10^6/uL Hgb 10.2 L (13.5-17.5) g/dL Hct 29.9 L (41-53) % MCV 94.2 (80-100) fL MCH 32.2 (26-34) PG MCHC 34.2 (30-36) % RDW 16.1 H (11.6-14.8) % Plt Count 22 L* (150-400) X10^3/uL Neut % (Auto) Not Reportable Lymph % (Auto) Not Reportable [place] % (Auto) Not Reportable Eos % (Auto) Not Reportable Baso % (Auto) Not Reportable Lymph # (Auto) Not Reportable [place] # (Auto) Not Reportable Baso # (Auto) Not Reportable Total Counted 25 Seg Neutrophils % 52.0 (38-70) % Lymphocytes % (Manual) 40.0 (25-45) % Monocytes % (Manual) 8.0 (2-11) % Neutrophils # (Manual) 416 L (5353-0832) /uL Nucleated RBCs 3 H ( - 0) #/Diff RBC Morphology See below Poikilocytosis 1+ H Anisocytosis 1+ H ABG pH (7.35-7.45) ABG pCO2 (35-45) mmHg ABG pO2 (80-100) mmHg ABG HCO3 (22-26) mmol/L ABG Total CO2 (21-31) mmol/L ABG O2 Saturation (95-100) % ABG Base Excess (-2-2) mmol/L FiO2 Sodium 138 (137-145) mmol/L Potassium 5.0 (3.4-5.1) mmol/L Chloride 106 (98-107) mmol/L Carbon Dioxide 21 L (22-32) mmol/L BUN 33 H (9-20) mg/dL Creatinine 1.91 H (0.66-1.25) mg/dL Estimated GFR 34.5 L (>60) mL/min BUN/Creatinine Ratio 17.3 (6-22) Glucose 173 H (80-110) mg/dL Calcium 10.2 (8.4-10.2) mg/dL Total Bilirubin 0.6 (0.2-1.3) mg/dL AST 58 (17-59) IU/L ALT 26 (<50) IU/L Alkaline Phosphatase 97 (38-126) U/L Total Creatine Kinase 196 H (55-170) U/L CK-MB (CK-2) 1.99 (<2.37) ng/mL CK-MB (CK-2) Rel Index 1.0 L (1.5-5.0) % Troponin I 0.146 H* 0.149 H* (0.01-0.034) ng/mL NT-Pro-B Natriuret Pep 688 H (<450) pg/mL Total Protein 7.6 (6.3-8.2) g/dL Albumin 3.7 (3.5-5.0) g/dL Globulin 3.9 (1.7-4.1) g/dL Albumin/Globulin Ratio 0.9 L (1.0-2.8) Urine RBC (0-5/HPF) Urine WBC (0-5/HPF) Amorphous Sediment Urine Bacteria (None) Ur Culture Indicated? 01/29/20 01/29/20 01/29/20 Range/Units 13:10 14:18 15:11 WBC (4.5-11.0) X10^3/uL RBC (4.5-5.9) X10^6/uL Hgb (13.5-17.5) g/dL Hct (41-53) % MCV (80-100) fL MCH (26-34) PG MCHC (30-36) % RDW (11.6-14.8) % Plt Count (150-400) X10^3/uL Neut % (Auto) Lymph % (Auto) [place] % (Auto) Eos % (Auto) Baso % (Auto) Lymph # (Auto) [place] # (Auto) Baso # (Auto) Total Counted Seg Neutrophils % (38-70) % Lymphocytes % (Manual) (25-45) % Monocytes % (Manual) (2-11) % Neutrophils # (Manual) (0675-3375) /uL Nucleated RBCs ( - 0) #/Diff RBC Morphology Poikilocytosis Anisocytosis ABG pH 7.45 (7.35-7.45) ABG pCO2 25.2 L (35-45) mmHg ABG pO2 66 L (80-100) mmHg ABG HCO3 18 L (22-26) mmol/L ABG Total CO2 18 L (21-31) mmol/L ABG O2 Saturation 94 L (95-100) % ABG Base Excess -6.0 L (-2-2) mmol/L FiO2 21 Sodium (137-145) mmol/L Potassium (3.4-5.1) mmol/L Chloride (98-107) mmol/L Carbon Dioxide (22-32) mmol/L BUN (9-20) mg/dL Creatinine (0.66-1.25) mg/dL Estimated GFR (>60) mL/min BUN/Creatinine Ratio (6-22) Glucose (80-110) mg/dL Calcium (8.4-10.2) mg/dL Total Bilirubin (0.2-1.3) mg/dL AST (17-59) IU/L ALT (<50) IU/L Alkaline Phosphatase (38-126) U/L Total Creatine Kinase (55-170) U/L CK-MB (CK-2) (<2.37) ng/mL CK-MB (CK-2) Rel Index (1.5-5.0) % Troponin I 0.123 H* (0.01-0.034) ng/mL NT-Pro-B Natriuret Pep (<450) pg/mL Total Protein (6.3-8.2) g/dL Albumin (3.5-5.0) g/dL Globulin (1.7-4.1) g/dL Albumin/Globulin Ratio (1.0-2.8) Urine RBC None seen (0-5/HPF) Urine WBC None seen (0-5/HPF) Amorphous Sediment 1+ Urine Bacteria None seen (None) Ur Culture Indicated? Cult not indicated Urine Dip Bedside Urine Glucose Negative Bedside Urine Bilirubin - Negative Bedside Urine Ketone - Negative Urine Specific [place] 1.020 Bedside Urine Occult Blood + Bedside Urine pH 6.0 Bedside Urine Protein + 30 Bedside Urine Urobilinogen - Negative Bedside Urine Nitrite - Negative Bedside Urine Leukocytes - Negative Esterase ECG Data Attestation: I personally reviewed and interpreted this ECG as follows: Discharge Plan Departure Patient Disposition: Home Clinical Impression: Acute dyspnea, Elevated troponin, Thrombocytopenia, Paroxysmal sinus tachycardia, Paroxysmal A-fib Allergic reaction Qualifiers: Encounter type: initial encounter Qualified Code(s): T78.40XA - Allergy, unspecified, initial encounter Leukopenia Qualifiers: Leukopenia type: unspecified Qualified Code(s): D72.819 - Decreased white blood cell count, unspecified Discharge Date/Time: 01/29/20 18:50 Instructions: DI for Adverse Drug Reaction -- Allergic, DI for Pancytopenia Activity Restrictions/Additional Instructions: 1. Take your regular medicines that she normally do at home. 2. Make a follow-up appointment to be seen and evaluated by your osteopathic medicine teacher. 3. Follow-up with Dr. Ron as scheduled. 4. If you develop worsening shortness of breath, swelling of your legs and your ankles, chest pain that lasts longer than 15-20 minutes, racing of your heart with palpitations, dizziness lightheadedness, feeling faint or passing-out you need to return to the emergency department. 5. If you develop fever abdominal pain, cough, diarrhea, or any bleeding you need to call and follow up with Dr. Ron. Your white blood count is very low as well a sure platelets. This is related to your underlying multiple myeloma. Dr. Ron is giving you chemotherapy to improve that. Prescriptions: New diltiazem HCl [Cardizem CD] 120 mg capsule,extended release 24hr 120 mg PO DAILY Qty: 30 RF: 0 No Action metformin [Glucophage] 1,000 MG tablet 1,000 mg PO BIDCC Qty: 0 RF: 0 Lantus U-100 Insulin 100 UNIT/1 ML solution 26 unit SQ QDAY Qty: 0 RF: 0 torsemide 10 MG tablet 20 mg PO DAILY Qty: 0 RF: 0 hydrocodone-acetaminophen [Clarita] 5-325 mg tablet 1 tab PO Q4H PRN (Reason: painful procedure) Qty: 7 RF: 0 potassium chloride 10 mEq Tablet Extended Release 10 meq PO DAILY RF: 0 gabapentin 600 mg Tablet 1,200 mg PO DAILY RF: 0 carvedilol 6.25 mg Tablet 6.25 mg PO BID RF: 0 Eliquis 2.5 mg Tablet 2.5 mg PO BID Qty: 60 RF: 6 acyclovir 800 mg Tablet 800 mg PO BID 90 Days Qty: 180 RF: 0 ondansetron HCl [Zofran] 4 mg Tablet 4 mg PO Q6H Qty: 60 RF: 0 dexamethasone 4 mg Tablet 12 mg PO WEEKLY Qty: 40 RF: 3 lorazepam [Ativan] 0.5 mg tablet 0.5 mg PO BEDTIME PRN (Reason: Sleep) Qty: 30 RF: 0 Referrals: Arnold Yanez MD [Primary Care Provider] -
[2020-01-29 15:51] LABS: Troponin I 0.123 ng/mL (0.01-0.034)
--- NOTE | 2020-01-29 18:09 | PC.NURSE ---
Pt has been NSR rate of 68-75 for stay in ED. Pt rhythm now fluctuation between NSR r75 to afib rate of 105-125. BP, normal and pt denies chest pain, sob, palpitations, dizziness, n/v. Provider notified, EKG performed by RT
[2020-01-29] MEDS: dilTIAZem CD 120 MG CAP PO (18:31)
== END 2020-01-29 18:50 | disposition home or self-care (01) ==
PROVIDERS: Emergency Provider Emergency Medicine; PCP Family Medicine
DX: T78.40XA Allergy, unspecified, initial encounter (principal); R79.89 Other specified abnormal findings of blood chemistry; R06.00 Dyspnea, unspecified; I47.9 Paroxysmal tachycardia, unspecified; I48.0 Paroxysmal atrial fibrillation; Z79.01 Long term (current) use of anticoagulants; D72.819 Decreased white blood cell count, unspecified; I11.0 Hypertensive heart disease with heart failure; D69.6 Thrombocytopenia, unspecified; I50.9 Heart failure, unspecified; J44.9 Chronic obstructive pulmonary disease, unspecified; E11.9 Type 2 diabetes mellitus without complications; C90.00 Multiple myeloma not having achieved remission; Z51.11 Encounter for antineoplastic chemotherapy
CPT/HCPCS: 36415; 36591; 36600; 71045; 80053; 81003; 81015; 82232; 82550; 82553; 82784; 82805; 83615; 83880; 83883; 84155; 84165; 84484; 85025; 86334; 86850; 86900; 86901; 93005; 93010; 94640; 94660; 96374; 96413; 99285; J1200; J1642; J1940; J2060; J2930; J7613; J9145

== ENCOUNTER 2020-02-06 14:41 | Observation (INO) | payer MEDICARE, SELFPAY ==
[2020-02-06] VITALS (12 sets, daily range): BP systolic 121–161; BP diastolic 55–87; PULSE 67–92; RESP 14–28; TEMP 36.4–36.5; O2SAT 94–100; BMI 29.4
--- NOTE | 2020-02-06 15:32 | DI.RAD.S_ITS ---
PROCEDURE: XR CHEST 1V INDICATIONS: Palpitations TECHNIQUE: One view of the chest was acquired. COMPARISON: [facility], CR, XR CHEST 1V, 01/22/2020, 12:04. [facility], CR, XR CHEST 1V, 01/29/2020, 13:28. FINDINGS: Surgical changes and devices: There is a Port-A-Cath on the left with the tip projecting to the atrophic caval junction. Lungs and pleura: Elevation of left hemidiaphragm with left basilar atelectasis. Lungs are otherwise clear. No pleural effusions or pneumothorax. Mediastinum: Mediastinal contours appear normal. Heart size is normal. Bones and chest wall: No suspicious bony lesions. Overlying soft tissues appear unremarkable. IMPRESSION: No acute cardiopulmonary disease. Left diaphragmatic elevation and left basilar atelectasis. Dictated by: Hardeep Francois M.D. on 02/06/2020 at 15:56 Approved by: Hardeep Francois M.D. on 02/06/2020 at 15:58
--- NOTE | 2020-02-06 15:58 | ED.ARRPALP ---
HPI - Arrhythmia/Palpitations General Chief Complaint: Arrhythmia/Palpitations Stated Complaint: Low Heart Rate, Sent From [facility] Time Seen by Provider: 02/06/20 15:31 Source: patient and family Mode of arrival: Wheelchair History of Present Illness HPI narrative: Patient seen here 8 days ago for dyspnea. Elevated troponin which were repeated and consult by Cardiology. Patient has been scheduled outpatient echocardiogram and stress test. By his Cardiology group. Dr. adan.. Patient since then has not feel better. Still weak and tired. Followed by oncology Dr. Ron, for multiple myeloma. Has had chemo started. Patient sent here from his surgeon's office Dr. Freed, in the office he states patient was bradycardic and irregular on exam. Patient denies any chest pain. Occasional has dyspnea. Has history of CHF as well. Patient also on Eliquis for atrial fibrillation as well as for blood clots in legs and lungs Related Data Home Medications Medication Instructions Recorded Confirmed metformin [Glucophage] 1,000 mg PO BIDCC #0 03/22/17 02/06/20 Lantus U-100 Insulin 25 unit SQ QDAY #0 06/14/17 02/06/20 potassium chloride 10 meq PO DAILY 05/05/18 02/06/20 gabapentin 1,200 mg PO DAILY 08/11/18 02/06/20 carvedilol 6.25 mg PO BID 02/08/19 02/06/20 Previous Rx's Medication Instructions Recorded Eliquis 2.5 mg PO BID #60 tab 07/18/19 lorazepam 0.5 mg tablet 0.5 mg PO BEDTIME PRN #30 tab 08/16/19 acyclovir 800 mg PO BID 90 Days #180 tab 12/28/19 dexamethasone 12 mg PO WEEKLY #40 tab 01/25/20 ondansetron HCl [Zofran] 4 mg PO Q6H #60 tab 01/25/20 Allergies Allergy/AdvReac Type Severity Reaction Status Date / Time daratumumab Allergy Severe Difficulty Verified 02/06/20 14:57 Breathing Review of Systems Review of Systems Narrative: GENERAL: Complains of fatigue and weakness HEENT: Denies sinus pain, ear pain, sore throat, difficulty swallowing, dizziness. RESPIRATORY: Denies dyspnea, cough, wheezing, hemoptysis, sputum. CARDIOVASCULAR: Denies chest pain, palpitations, orthopnea, edema, GASTROINTESTINAL: Denies nausea, vomiting, abdominal pain, diarrhea, constipation, melena. : Denies dysuria, frequency, incontinence, hematuria, urinary retention. MUSCULOSKELETAL: denies weakness, joint pain, or bony pain SKIN: Denies rash, skin lesions, or other NEUROLOGIC: Denies weakness, headache, numbness, change in speech, confusion, seizures, incoordination. PSYCHIATRIC: No concerning psychosocial issues. 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 Well-nourished, well-developed patient, in no distress, not toxic HEAD: Atraumatic. Normocephalic. EYES: Pupils equal round and reactive. Extraocular motions intact. No scleral icterus. No injection or drainage. ENT: Nose without bleeding, purulent drainage. Throat without erythema, tonsillar hypertrophy or exudate. Airway patent. NECK: Trachea midline. Non tender CARDIOVASCULAR: Irregularly irregular, not tachycardic RESPIRATORY: Clear to auscultation. Breath sounds equal bilaterally. No wheezes, rales, or rhonchi. GASTROINTESTINAL: Abdomen soft, non-tender, nondistended. EXTREMITIES: Symmetric bilateral pedal edema 3+ BACK: Nontender without deformity or crepitance. No flank tenderness. NEURO: AOx3. SKIN: No rash or erythema of visible areas Initial Vital Signs Initial Vital Signs: Vital Signs Temperature 97.7 F 02/06/20 14:53 Pulse Rate 67 02/06/20 14:53 Respiratory Rate 14 02/06/20 14:53 Blood Pressure 121/55 L 02/06/20 14:53 Pulse Oximetry 98 02/06/20 14:53 Course Course Course Narrative: No new issues during course of stay. Decision to Admit Date: 02/06/20 Decision to Admit time: 18:20 Orders Ordered: Acetaminophen (Tylenol) 650 mg PO Q6HR PRN PRN Reason: Fever/Mild Pain (1-3) Apixaban (Eliquis) 2.5 mg PO BID JAYDON Lorazepam (Ativan) 0.5 mg PO BEDTIME PRN PRN Reason: Sleep Metformin HCl (Glucophage) 1,000 mg PO BIDWM [facility] Last Admin: 02/06/20 20:25 Dose: 1,000 mg Documented by: DUNIA Ondansetron HCl (Zofran Odt) 4 mg PO Q6H [facility] Last Admin: 02/07/20 03:06 Dose: Not Given Documented by: Admin: 02/06/20 20:47 Dose: Not Given Documented by: DUNIA Ondansetron HCl (Zofran) 4 mg IV Q4HR PRN PRN Reason: Nausea And Vomiting Discontinued Medications Sodium Chloride (Normal Saline 0.9%) 1,000 mls @ 150 mls/hr IV CONT [facility] Last Infusion: 02/06/20 18:32 Dose: 0 mls/hr Documented by: Admin: 02/06/20 16:30 Dose: 150 mls/hr Documented by: JACINDA Reevaluation(s) Reevaluation #1: No new issues. Patient resting comfortably. Time: 18:20 Consultations Consultation #1: Spoke with family physician Dr. Arnold Yanez, admit to his service, he will contact Cardiology in the morning. Time: 18:21 Vital Signs Vital signs: Vital Signs - 8 hr 02/06/20 14:53 02/06/20 15:28 02/06/20 15:29 Temperature 97.7 F Pulse Rate 67 73 74 Respiratory Rate 14 17 14 Blood Pressure 121/55 L 138/73 Pulse Oximetry 98 96 96 02/06/20 15:30 02/06/20 16:00 02/06/20 16:30 Temperature Pulse Rate 73 73 69 Respiratory Rate 17 24 24 Blood Pressure 135/75 Pulse Oximetry 96 98 96 02/06/20 16:37 02/06/20 17:00 Temperature Pulse Rate 71 71 Respiratory Rate 18 22 Blood Pressure 132/82 161/87 H Pulse Oximetry 99 100 MDM - Arrhythmia/Palpitations Lab Data Result diagrams: 02/07/20 05:03 02/07/20 05:03 Labs: Lab Results 02/06/20 02/06/20 02/06/20 Range/Units 16:20 16:20 16:20 WBC 2.4 L (4.5-11.0) X10^3/uL RBC 2.36 L (4.5-5.9) X10^6/uL Hgb 7.7 L (13.5-17.5) g/dL Hct 22.2 L (41-53) % MCV 94.3 (80-100) fL MCH 32.7 (26-34) PG MCHC 34.7 (30-36) % RDW 16.0 H (11.6-14.8) % Plt Count 44 L (150-400) X10^3/uL Neut % (Auto) Not Reportable Lymph % (Auto) Not Reportable [place] % (Auto) Not Reportable Eos % (Auto) Not Reportable Baso % (Auto) Not Reportable Lymph # (Auto) Not Reportable [place] # (Auto) Not Reportable Baso # (Auto) Not Reportable Total Counted 89 Seg Neutrophils % 37.1 L (38-70) % Band Neutrophils % 10.1 H (3-7) % Lymphocytes % (Manual) 33.7 (25-45) % Monocytes % (Manual) 13.5 H (2-11) % Eosinophils % (Manual) 1.1 L (2-4) % Metamyelocytes % 4.5 H (-0) % Neutrophils # (Manual) 1133 L (9880-7810) /uL Nucleated RBCs 1 H ( - 0) #/Diff Platelet Estimate Decreased on smear RBC Morphology Normal morphology PT 13.1 H (10.1-12.7) SECONDS INR 1.1 (0.9-1.3) APTT 26 L D (26.4-36.2) SECONDS Sodium 136 L (137-145) mmol/L Potassium 3.8 D (3.4-5.1) mmol/L Chloride 103 (98-107) mmol/L Carbon Dioxide 27 (22-32) mmol/L BUN 33 H (9-20) mg/dL Creatinine 2.08 H (0.66-1.25) mg/dL Estimated GFR 31.3 L (>60) mL/min BUN/Creatinine Ratio 15.9 (6-22) Glucose 95 (80-110) mg/dL Calcium 10.6 H (8.4-10.2) mg/dL Total Bilirubin 0.4 (0.2-1.3) mg/dL AST 35 (17-59) IU/L Alkaline Phosphatase 74 (38-126) U/L Total Creatine Kinase 96 (55-170) U/L CK-MB (CK-2) TNP CK-MB (CK-2) Rel Index TNP Troponin I 0.150 H* (0.01-0.034) ng/mL NT-Pro-B Natriuret Pep 790 H (<450) pg/mL Total Protein 6.7 (6.3-8.2) g/dL Albumin 3.3 L (3.5-5.0) g/dL Globulin 3.4 (1.7-4.1) g/dL Albumin/Globulin Ratio 1.0 (1.0-2.8) Lipase 121 (23-300) U/L COVID-19 PCR (Negative) 02/06/20 Range/Units 16:20 WBC (4.5-11.0) X10^3/uL RBC (4.5-5.9) X10^6/uL Hgb (13.5-17.5) g/dL Hct (41-53) % MCV (80-100) fL MCH (26-34) PG MCHC (30-36) % RDW (11.6-14.8) % Plt Count (150-400) X10^3/uL Neut % (Auto) Lymph % (Auto) [place] % (Auto) Eos % (Auto) Baso % (Auto) Lymph # (Auto) [place] # (Auto) Baso # (Auto) Total Counted Seg Neutrophils % (38-70) % Band Neutrophils % (3-7) % Lymphocytes % (Manual) (25-45) % Monocytes % (Manual) (2-11) % Eosinophils % (Manual) (2-4) % Metamyelocytes % (-0) % Neutrophils # (Manual) (8277-4413) /uL Nucleated RBCs ( - 0) #/Diff Platelet Estimate RBC Morphology PT (10.1-12.7) SECONDS INR (0.9-1.3) APTT (26.4-36.2) SECONDS Sodium (137-145) mmol/L Potassium (3.4-5.1) mmol/L Chloride (98-107) mmol/L Carbon Dioxide (22-32) mmol/L BUN (9-20) mg/dL Creatinine (0.66-1.25) mg/dL Estimated GFR (>60) mL/min BUN/Creatinine Ratio (6-22) Glucose (80-110) mg/dL Calcium (8.4-10.2) mg/dL Total Bilirubin (0.2-1.3) mg/dL AST (17-59) IU/L Alkaline Phosphatase (38-126) U/L Total Creatine Kinase (55-170) U/L CK-MB (CK-2) CK-MB (CK-2) Rel Index Troponin I (0.01-0.034) ng/mL NT-Pro-B Natriuret Pep (<450) pg/mL Total Protein (6.3-8.2) g/dL Albumin (3.5-5.0) g/dL Globulin (1.7-4.1) g/dL Albumin/Globulin Ratio (1.0-2.8) Lipase (23-300) U/L COVID-19 PCR Negative (Negative) Imaging Data Chest x-ray: Radiologist's Impresson: [address] [address] XRay Report Signed Patient: Sadi Demarco PMR#: [id number] : 4Acct:[id number] Age/Sex: 74 / MDate of Service: 02/06/20 Loc: ED Accession Number: [id number] Procedure: XR chest 1V Ordering Provider: César Acuña MD PROCEDURE: XR CHEST 1V INDICATIONS: Palpitations TECHNIQUE: One view of the chest was acquired. COMPARISON: [facility], CR, XR CHEST 1V, 01/22/2020, 12:04. [facility], CR, XR CHEST 1V, 01/29/2020, 13:28. FINDINGS: Surgical changes and devices: There is a Port-A-Cath on the left with the tip projecting to the atrophic caval junction. Lungs and pleura: Elevation of left hemidiaphragm with left basilar atelectasis. Lungs are otherwise clear. No pleural effusions or pneumothorax. Mediastinum: Mediastinal contours appear normal. Heart size is normal. Bones and chest wall: No suspicious bony lesions. Overlying soft tissues appear unremarkable. IMPRESSION: No acute cardiopulmonary disease. Left diaphragmatic elevation and left basilar atelectasis. Dictated by: Hardeep Francois M.D. on 02/06/2020 at 15:56 Approved by: Hardeep Francois M.D. on 02/06/2020 at 15:58 ECG Data Attestation: I personally reviewed and interpreted this ECG as follows: Interpretation: Sinus arrhythmia no ST elevation depression MDM Narrative Medical decision making narrative: Second visit in 8 days. Had troponin is likely chronic. There is a change in the CVCU which likely related to multiple myeloma chemotherapy. Reviewed with family physician. Addendum February 07, 2020 at 8:06 a.m.. Previous sentence should read there is a change in the CBC which likely related to multiple myeloma chemotherapy Discharge Plan Departure Patient Disposition: Admitted as Observation Clinical Impression: Anemia Discharge Date/Time: 02/06/20 19:09 Admit Date/Time: 02/06/20 18:15 Admit Provider: Arnold Yanez
[2020-02-06] MEDS: SODIUM CHLORIDE 0.9% 1,000 ML 150 ML IV (16:30)
[2020-02-06 16:52] LABS: INR 1.1 (0.9-1.3); Prothrombin Time 13.1 SECONDS (10.1-12.7)
[2020-02-06 16:53] LABS: Hematocrit 22.2 % (41-53); Hemoglobin 7.7 g/dL (13.5-17.5); Mean Corpuscular HGB Conc 34.7 % (30-36); Mean Corpuscular Hemoglobin 32.7 PG (26-34); Mean Corpuscular Volume 94.3 fL (80-100); Platelet Count 44 X10^3/uL (150-400); Red Blood Cell Count 2.36 X10^6/uL (4.5-5.9); White Blood Cell Count 2.4 X10^3/uL (4.5-11.0)
[2020-02-06 16:55] LABS: PTT Partial Thromboplastin Tim 26 SECONDS (26.4-36.2)
[2020-02-06 16:57] LABS: Add Manual Diff / Slide Review YES; Albumin 3.3 g/dL (3.5-5.0); Alkaline Phosphatase 74 U/L (38-126); Aspartate Aminotransferase 35 IU/L (17-59); BUN Creatinine Ratio 15.9 (6-22); Bilirubin Total 0.4 mg/dL (0.2-1.3); Blood Urea Nitrogen 33 mg/dL (9-20); Calcium 10.6 mg/dL (8.4-10.2); Carbon Dioxide 27 mmol/L (22-32); Chloride 103 mmol/L (98-107); Creatine Kinase 96 U/L (55-170); Estimated Glomerular Filt Rate 31.3 mL/min (>60); Globulin 3.4 g/dL (1.7-4.1); Glucose 95 mg/dL (80-110); Lipase 121 U/L (23-300); Potassium 3.8 mmol/L (3.4-5.1); Sodium 136 mmol/L (137-145); Total Protein 6.7 g/dL (6.3-8.2)
[2020-02-06 17:09] LABS: NT-proBNP (BNP-Adult 18+) 790 pg/mL (<450)
[2020-02-06 17:20] LABS: Band Neutrophils Percent 10.1 % (3-7); Eosinophils Percent Manual 1.1 % (2-4); Lymphocytes Percent Manual 33.7 % (25-45); Metamyelocytes Percent 4.5 % (-0); Monocytes Percent Manual 13.5 % (2-11); Neutrophils Absolute Manual 1133 /uL (3000-5900); Nucleated Red Blood Cells 1 #/Diff; Platelet Estimate Decreased on smear; RBC Morphology Normal Morphology; Segmented Neutrophils Percent 37.1 % (38-70); Total Cells Counted 89
--- NOTE | 2020-02-06 19:13 | PC.NURSE ---
1600-Attempted to access port. Unable to draw blood. had a small amount of sero-sanguineous fluid then it stopped. repositioned multiple ways and had other nurse Bonita Villalta come in with no success. Deaccessed device and started a peripheral line.
[2020-02-06 19:56] LABS: COVID19 -Nasal RAPID Negative (Negative)
[2020-02-06] MEDS: ONDANSETRON 4 MG ODT PO (20:25)
[2020-02-06] MEDS: METFORMIN HCL 500 MG TABLET 1000 MG PO (20:25)
--- NOTE | 2020-02-06 23:22 | PC.NURSE ---
Pt out of bed to the bathroom, bed alarm sounding. Pulled out IV. Pt making confused statements, Now how did I get here? Reoriented to place and situation. Restart IV. fragile veins. Monitor. Bed alarm on. Reinforced safety and call light use.
[2020-02-07] VITALS (13 sets, daily range): BP systolic 129–156; BP diastolic 49–96; PULSE 56–87; RESP 14–20; TEMP 35.5–37.1; O2SAT 94–97
[2020-02-07 05:42] LABS: Add Manual Diff / Slide Review NO; Basophils Absolute Auto 0 /uL (0-100); Basophils Percent Auto 0.3 % (0-2); Eosinophils Absolute Auto 0 /uL (0-450); Eosinophils Percent Auto 0.8 % (2-4); Hemoglobin 7.1 g/dL (13.5-17.5); Lymphocytes Absolute Auto 800 /uL (1100-4500); Lymphocytes Percent Auto 42.7 % (25-40); Mean Corpuscular HGB Conc 34.4 % (30-36); Mean Corpuscular Hemoglobin 32.4 PG (26-34); Mean Corpuscular Volume 94.3 fL (80-100); Monocytes Absolute Auto 300 /uL (0-900); Monocytes Percent Auto 16.6 % (3-14); Neutrophils Absolute Auto 800 /uL (1500-7000); Neutrophils Percent Auto 39.6 % (50-75); Platelet Count 39 X10^3/uL (150-400); Red Cell Distribution Width 15.9 % (11.6-14.8)
[2020-02-07 05:46] LABS: Albumin 2.8 g/dL (3.5-5.0); Albumin Globulin Ratio 0.9 (1.0-2.8); Alkaline Phosphatase 68 U/L (38-126); Aspartate Aminotransferase 30 IU/L (17-59); BUN Creatinine Ratio 14.9 (6-22); Bilirubin Total 0.3 mg/dL (0.2-1.3); Blood Urea Nitrogen 30 mg/dL (9-20); Calcium 10.2 mg/dL (8.4-10.2); Carbon Dioxide 26 mmol/L (22-32); Chloride 106 mmol/L (98-107); Estimated Glomerular Filt Rate 32.4 mL/min (>60); Glucose 144 mg/dL (80-110); HEMOLYSIS < 15 (0-50); Potassium 3.7 mmol/L (3.4-5.1); Sodium 137 mmol/L (137-145); Total Protein 5.8 g/dL (6.3-8.2)
[2020-02-07 06:25] LABS: Troponin I 0.165 ng/mL (0.01-0.034)
[2020-02-07 06:26] LABS: Hematocrit 20.8 % (41-53)
--- NOTE | 2020-02-07 06:32 | PC.NURSE ---
Notified Dr Yanez of critical lab values via phone. Dr Yanez reports that cardiology and oncology with consult with patient. Watch for any abnormal VS
[2020-02-07] MEDS: METFORMIN HCL 500 MG TABLET 1000 MG PO ×2 (09:02→19:04)
--- NOTE | 2020-02-07 09:38 | PC.NURSE ---
Addendum entered by Kimberly Callaway R.N. 02/07/20 14:51: Patient will be getting 2u of PRBCS when they are ready down in the lab, and platelets that will be coming stat from [facility]. Patient has been type and crossed, he will be premedicated with tylenol, benadryl, and have lasix in between units of blood. He is more comfortable and relaxing with in room after talking with . Addendum entered by Kimberly Callaway R.N. 02/07/20 13:44: into see patient, he has agreed to stay and get some blood. Denies pain. Per his patient does have confusion. Up to the bathroom. Held 25u of lantus as his bs was in the 120s and he is refusing to eat meals. Addendum entered by Kimberly Callaway R.N. 02/07/20 12:35: Patient upset and wanted to leave AMA from hospital as he was not understanding why the was not coming to see him. Explained to the patient multiple times that she was at clinic and would be here around 133O to see patient, he was not understanding. The Doctor will actually be here in about 30 to 45 minutes to see patient. He is in bed and talking to his . Original Note: Patient denies sob, weakness while resting in bed, or feelings of syncope. He has multiple scattered bruises to his arms and torso. He was taking a eloquis. He had his port put in to left upper chest a couple of weeks ago and it was accessed here but no blood return. Patient did have a reaction to a new chemo drug and came to the ER for anaphylaxis issues with throat closing before this visit. He has a low H&H, awaiting to see . Patient would like to go home.
--- NOTE | 2020-02-07 09:43 | PM.HP.1 ---
History of Present Illness History of Present Illness Date Patient Seen: 02/07/20 Time Patient Seen: 09:43 Chief complaint: Low Heart Rate, Sent From [facility] Narrative: This 74-year-old male with history of multiple myeloma and currently undergoing chemotherapy, Dr. Ron consulting, was admitted overnight for an elevated troponin, and pancytopenia. Patient has had 2 ED visits in the last 8 days for dyspnea, weakness, and fatigue. He was sent to the ED this time by Dr. Freed after he was found to be bradycardic and irregular in the office where he was getting his recently-placed port checked. He is scheduled for an outpatient echocardiogram and stress test, Dr. Carballo consulting. Denies chest pain. Medical history significant for CHF, atrial fibrillation, as well as clots in the lungs and legs, anticoagulated on Eliquis. Workup in the ED significant for a pancytopenia with a normocytic/normochromic anemia. Troponins were elevated x 3: 0.123, 0.150, and 0.165. Elevated creatinine at 2.02 (baseline 1.2), elevated BNP 790, albumin low at 3.3. Absolute neutrophil count was low at 1133. Chest x-ray showed left diaphragm elevation and left basilar atelectasis. COVID screen was notably negative. Past medical history: 1. Multiple myeloma 2. Atrial fibrillation 3. Diabetes mellitus type 2 4. Congestive heart failure 5. Hypertension 7. History of left leg DVT 8. Anemia 9. Post herpetic neuralgia 10. Erectile dysfunction 12. PTSD 13. 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 (Acute) Thrombocytopenia (Acute) Surgical History History of cardiac radiofrequency ablation (Resolved) History of right cataract extraction (Acute 02/14/19) Family & Social History Social History: household members spouse Safety & Behavioral: Feels Safe in Current Yes Environment Been Physically Hurt or No Threatened By a Person Suicidal Ideation Description None Suicide Plan Description No Plan Tobacco & Substance use: Smoking Status Never smoker alcohol intake frequency a few times a month Substance Use Type does not use Meds Home Medications and Allergies Home Medications Medication Instructions Recorded Confirmed Type metformin [Glucophage] 1,000 mg PO BIDCC #0 03/22/17 02/06/20 History Lantus U-100 Insulin 25 unit SQ QDAY #0 06/14/17 02/06/20 History potassium chloride 10 meq PO DAILY 05/05/18 02/06/20 History gabapentin 1,200 mg PO DAILY 08/11/18 02/06/20 History carvedilol 6.25 mg PO BID 02/08/19 02/06/20 History Eliquis 2.5 mg PO BID #60 tab 07/18/19 02/06/20 Rx lorazepam 0.5 mg tablet 0.5 mg PO BEDTIME PRN #30 tab 08/16/19 02/06/20 Rx acyclovir 800 mg PO BID 90 Days #180 tab 12/28/19 02/06/20 Rx dexamethasone 12 mg PO WEEKLY #40 tab 01/25/20 02/06/20 Rx ondansetron HCl [Zofran] 4 mg PO Q6H #60 tab 01/25/20 02/06/20 Rx Allergies Allergy/AdvReac Type Severity Reaction Status Date / Time daratumumab Allergy Severe Difficulty Verified 02/06/20 14:57 Breathing Review of Systems Review of Systems ROS: Yes All systems reviewed with the patient and are negative except as otherwise documented Exam Vital Signs (past 8 hours): - 02/07/20 04:00 02/07/20 08:00 Temperature 98.5 F 98.4 F Pulse Rate 70 87 Respiratory Rate 18 16 Blood Pressure 142/70 H 131/95 H Pulse Oximetry 94 96 Oxygen Delivery Method Room Air Oxygen Flow Rate 0 Narrative Exam Narrative: GENERAL: Alert and oriented, appearing stated age and in no acute distress. HEENT: Head normocephalic/atraumatic. Pupils equal, round, and reactive to light and accomodation. Extraocular muscles intact. Tympanic membranes clear. Nasal mucosa moist, septum midline. Oral mucosa moist, no lesions. Neck soft and supple, no lymphadenopathy. LUNGS: Clear to ausculation bilaterally, no wheezes, rhonchi or rales. CV: Irregularly irregular, no audible murmurs, rubs or gallops. ABDOMEN: Soft, non-tender, non-distended, no organomegaly. Positive bowel sounds. EXTREMITIES: No clubbing, cyanosis, or edema. NEURO: Cranial nerves II through XII grossly intact, no focal deficits. PSYCH: Alert and oriented x 3. SKIN: No concerning lesions. Objective Labs Result Diagrams: 02/07/20 05:03 02/07/20 05:03 Labs: Laboratory Results - last 24 hr 02/06/20 02/06/20 02/06/20 16:20 16:20 16:20 WBC 2.4 L RBC 2.36 L Hgb 7.7 L Hct 22.2 L MCV 94.3 MCH 32.7 MCHC 34.7 RDW 16.0 H Plt Count 44 L Neut % (Auto) Not Reportable Lymph % (Auto) Not Reportable [place] % (Auto) Not Reportable Eos % (Auto) Not Reportable Baso % (Auto) Not Reportable Neut # (Auto) Lymph # (Auto) Not Reportable [place] # (Auto) Not Reportable Eos # (Auto) Baso # (Auto) Not Reportable Total Counted 89 Seg Neutrophils % 37.1 L Band Neutrophils % 10.1 H Lymphocytes % (Manual) 33.7 Monocytes % (Manual) 13.5 H Eosinophils % (Manual) 1.1 L Metamyelocytes % 4.5 H Neutrophils # (Manual) 1133 L Nucleated RBCs 1 H Platelet Estimate Decreased on smear RBC Morphology Normal morphology PT 13.1 H INR 1.1 APTT 26 L D Sodium 136 L Potassium 3.8 D Chloride 103 Carbon Dioxide 27 BUN 33 H Creatinine 2.08 H Estimated GFR 31.3 L BUN/Creatinine Ratio 15.9 Glucose 95 Calcium 10.6 H Total Bilirubin 0.4 AST 35 Alkaline Phosphatase 74 Total Creatine Kinase 96 CK-MB (CK-2) TNP CK-MB (CK-2) Rel Index TNP Troponin I 0.150 H* NT-Pro-B Natriuret Pep 790 H Total Protein 6.7 Albumin 3.3 L Globulin 3.4 Albumin/Globulin Ratio 1.0 Lipase 121 COVID-19 PCR 02/06/20 02/07/20 02/07/20 16:20 05:03 05:03 WBC 2.0 L RBC 2.20 L Hgb 7.1 L Hct 20.8 L* MCV 94.3 MCH 32.4 MCHC 34.4 RDW 15.9 H Plt Count 39 L Neut % (Auto) 39.6 L Lymph % (Auto) 42.7 H [place] % (Auto) 16.6 H Eos % (Auto) 0.8 L Baso % (Auto) 0.3 Neut # (Auto) 800 L Lymph # (Auto) 800 L [place] # (Auto) 300 Eos # (Auto) 0 Baso # (Auto) 0 Total Counted Seg Neutrophils % Band Neutrophils % Lymphocytes % (Manual) Monocytes % (Manual) Eosinophils % (Manual) Metamyelocytes % Neutrophils # (Manual) Nucleated RBCs Platelet Estimate RBC Morphology PT INR APTT Sodium 137 Potassium 3.7 Chloride 106 Carbon Dioxide 26 BUN 30 H Creatinine 2.02 H Estimated GFR 32.4 L BUN/Creatinine Ratio 14.9 Glucose 144 H Calcium 10.2 Total Bilirubin 0.3 AST 30 Alkaline Phosphatase 68 Total Creatine Kinase CK-MB (CK-2) CK-MB (CK-2) Rel Index Troponin I 0.165 H* NT-Pro-B Natriuret Pep Total Protein 5.8 L Albumin 2.8 L Globulin 3.0 Albumin/Globulin Ratio 0.9 L Lipase COVID-19 PCR Negative Assessment & Plan Assessment & Plan narrative: 1. Rule out [place], elevated troponin x 3, acute. -Patient currently denies chest pain and is not dyspneic at rest. -EKG in ED showed no ST elevation or depression. -Dr. Cruz, on-call construction trench digger consulted regarding elevated troponins. -Secondary to patient's acute on chronic renal failure, Dr. Cruz felt that troponins are more likely due to renal function rather than cardiac function. -Echo , EF 55-60%, no significant change from 2018. -CK 96 in ED. PLAN: -Dr. Schmitt, recommended a follow-up CK to confirm that values are not climbing. Will check CK along with CK-MB and additional troponin in the morning. Possible need for repeat echo and stress test while inpatient, already scheduled later this week as an outpatient. -Will continue telemetry, EKG in am. -Nitroglycerin/morphine prn. 2. Pancytopenia, acute, worsening in last 3 months -Anemia, normocytic/normochromic H/H: 7.08/14.8 -Thrombocytopenia: 39 -Leukopenia with absolute neutrophil count of 1133 -Dr. Ron, oncology consulted. He recommended a blood transfusion to keep hematocrit greater than 25, platelet transfusion to keep platelets above 50, and Neupogen if ANC falls below 1000. Also recommended updating serum IgG. PLAN: -2 units of packed red blood cells platelet infusion. -Will trend labs in the morning: CBC, serum IgG 3. Congestive heart failure with preserved ejection fraction, acute on chronic -Secondary to atrial fibrillation. -Echo on , EF 55-60%, no significant change from 2018. -BNP 790. -Dr. Carballo, cardiology, outpatient art sales consultant. PLAN: -Continue home torsemide 20 mg p.o. q.day. -Repeat BNP in am. -Scheduled for outpatient echo this week, possible need for inpatient echo depending on troponins. 4. Atrial fibrillation, chronic with acute bradycardia in ED, now improving. -Rate-controlled with carvedilol 6.25 mg p.o. b.i.d. -Anticoagulated on Eliquis 2.5 mg p.o. b.i.d. Takes potassium daily. PLAN: -Continue home medications and telemetry. 5. Multiple myeloma, chronic -Dr. Ron consulting, currently undergoing chemotherapy. -Port recently placed by Dr. Freed, 01/22/20. ED staff had difficulty accessing port. PLAN: -Will contact Dr. Freed regarding checking patient's port. -Will continue to coordinate care with Dr. Ron. 6. Renal failure, G3B, acute on chronic, present on admission -Recent drop from GFR >50 to GFR around 30 in the last 3 months. -Undergoing chemotherapy. PLAN: -Will trend labs. 7. Hypoalbuminemia, worsening in last 3 months -Baseline albumin 4.0, now 3.3 in the last 3 months. -Likely multifactorial etiology from renal failure, chemotherapy infusions, to chronic disease. PLAN: -Will focus on volume resuscitation with PRBC/platelet infusions and reassess labs in the morning. 8. Diabetes mellitus type 2, insulin-dependent, chronic -A1c 6.3 on 09/11/19. PLAN: -Continue home medications. -Will update A1c. 9. Hypertension, chronic -Generally well controlled in the outpatient setting on carvedilol 6.25 mg p.o. b.i.d. Now 130-150s/50-90s. -Likely multifactorial etiology from diabetes mellitus type 2, chronic kidney disease, multiple myeloma, chemotherapy. Plan: -Fluid resuscitation to bring hemoglobin/hematocrit levels towards normal. -Will continue home medications in the meantime. - 10. History of blood clots, left leg, lungs PLAN: Eliquis. 11. Post herpetic neuralgia, chronic PLAN: Continue home gabapentin. 12. 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 13. PTSD, chronic PLAN: Continue home lorazepam 0.5 mg PO qhs, prn. DVT prophylaxis: Home Eliquis. Code: Full Disposition: Anticipate 24-48 hour stay Quality VTE Deep Vein Thrombosis/Pulmonary Embolism Present on Admission: No
--- NOTE | 2020-02-07 12:47 | CM.DANOTE ---
DCP assessment: EMR reviewed: Patient is 74 yr old male who was admitted for low BP and anemia. Patients PCP is DR. Yanez. CM/RN met with patient at the bedside and explained role. Patient was alert and oriented x3 at time of CM/RN visit. Patient currently lives in a single level home with his [place]. patient is Independent with all ADL's and Drives independently when needed. Patient is currently on Chemo therapy as cancer treatment. And is being followed by Dr Ron. Patients expressed interest in leaving the hospital soon and would like to see the Dr. Cm/RN made a call down to Dr. Yanez office and left a message.patient has a low H&H and patients asked if patient will need a blood transfusion? CM/RN stated that was a question for when he see's his provider. ROBERT/RN stated that sometimes they do it in the hospital but because he is on Chemo they may do a transfusion if needed on an out patient basis but it will be determined by the MD. Patient a while later told nurse he wanted to leave- patient was very upset he hasn't seen a provider yet and would like to see one or stated he would leave AMA. Patients nurse called Dr. Yanez office and sterilisation technician stated she would be up to see patient at 1:30pm. Patient stated understanding and was in agreement to stay. I: Medicare and AARP Plan: D/C home with family when medically stable.No identified D/C planning needs noted at this time Cm/Rn will follow to assist with any issues associated with AMA or D/C. Yessica Otto RN Discharge Planning/Care Management Advanced directive, confirm from FAMILY Start: 02/06/20 19:35 Freq: Q24H Status: Active Protocol: Document 02/06/20 19:35 KMD (Rec: 02/06/20 19:42 KMD [id number]) Advance Directive, confirm on record Time 19:42 Person contacted Family Copy received No CM Discharge Assessment Start: 02/07/20 12:39 Freq: Status: Active Protocol: Document 02/07/20 12:39 HS (Rec: 02/07/20 12:47 HS [id number]) Discharge Planning Assessment Assigned [employer]ble Worker Yessica Otto RN DPOA/Assigned Designee Name [facility] Demarco () Contact Information [phone] Advance Directives? Yes History Provided By Patient Prior Living Arrangements House Household Members spouse Type of transporation used prior to Drives own vehicle admit Independent with ADL's Yes Is patient alert and oriented? Yes Caregiver for Another No DME Already Rented / Owned Cane Discharge Plan Home Referrals Initiated None needed Whiteboard Updated in Patient Room with Yes name and ext. # of Marble Worker Review Status In Process Next Review Type Continued Stay Review
[2020-02-07 13:10] LABS: RBC Morphology Normal Morphology
[2020-02-07] MEDS: ACYCLOVIR 400 MG TABLET 800 MG PO ×2 (13:57→20:34)
[2020-02-07] MEDS: carvediloL 6.25 MG TABLET PO (13:57)
[2020-02-07] MEDS: POTASSIUM CHLORIDE 10 MEQ TAB PO (13:57)
[2020-02-07 14:10] LABS: Alanine Aminotransferase 22 IU/L (<50)
[2020-02-07 14:36] LABS: Alanine Aminotransferase 24 IU/L (<50); HEMOLYSIS < 15 (0-50)
[2020-02-07] MEDS: ACETAMINOPHEN 325 MG TABLET 650 MG PO (16:27)
[2020-02-07] MEDS: SODIUM CHLORIDE 0.9% 250 ML 21 ML IV (16:27)
[2020-02-07] MEDS: diphenhydrAMINE 50 MG/ML VIAL IV (16:27)
[2020-02-07] MEDS: FUROSEMIDE 40 MG/4 ML VIAL IV (19:04)
[2020-02-07] MEDS: GABAPENTIN 600 MG TABLET 1200 MG PO (20:35)
[2020-02-08 00:26] VITALS: BP 154/66; PULSE 64; RESP 18; TEMP 36.6
[2020-02-08 00:45] VITALS: BP 145/83; PULSE 66; RESP 18; TEMP 36.5
[2020-02-08 01:36] VITALS: BP 145/90; PULSE 72; RESP 19; TEMP 36.7
--- NOTE | 2020-02-08 02:01 | PC.NURSE ---
Addendum entered by Bessy Cruz R.N. 02/08/20 06:47: Noted weight to be down 2.9kg attributed to receiving IV Lasix between units of PRBC's last evening. Original Note: Patient is alert and oriented. Breath sounds diminished but CTA with RA sat of 97%; denies SOB. HRR; last recorded telemetry reading was SR w/PAC's and rare PVC's. Denies nausea and declined scheduled antiemetic. BT present and abdomen is soft. Voiding frequently related to receiving Lasix between units of blood on previous shift; denies dysuria or urgency. Is able to turn self in bed and is up to bathroom with SBA; denies feeling weak or unsteady. Had bilateral calf SCD's on earlier this shift but due to urinary frequency he now declines to have them put back on after having been up to bathroom; educated on DVT prevention and patient verbalizes understanding. Fall risk score is high and patient is forgetful at times so bed alarm is activated.
[2020-02-08 05:53] LABS: Hemoglobin A1C% w Est Avg Glu 6.8 % (4.0-6.0)
[2020-02-08 05:57] LABS: Creatine Kinase 98 U/L (55-170)
[2020-02-08 06:00] LABS: Alanine Aminotransferase 22 IU/L (<50); Albumin 3.1 g/dL (3.5-5.0); Alkaline Phosphatase 82 U/L (38-126); Aspartate Aminotransferase 32 IU/L (17-59); Bilirubin Total 0.6 mg/dL (0.2-1.3); Blood Urea Nitrogen 27 mg/dL (9-20); Calcium 10.6 mg/dL (8.4-10.2); Carbon Dioxide 29 mmol/L (22-32); Chloride 106 mmol/L (98-107); Estimated Glomerular Filt Rate 31.3 mL/min (>60); Globulin 3.2 g/dL (1.7-4.1); Glucose 100 mg/dL (80-110); HEMOLYSIS < 15 (0-50); Potassium 3.9 mmol/L (3.4-5.1); Sodium 140 mmol/L (137-145); Total Protein 6.3 g/dL (6.3-8.2)
[2020-02-08 06:12] LABS: Troponin I 0.197 ng/mL (0.01-0.034)
[2020-02-08 06:39] LABS: Hematocrit 24.2 % (41-53); Hemoglobin 8.5 g/dL (13.5-17.5); Mean Corpuscular HGB Conc 35.1 % (30-36); Mean Corpuscular Hemoglobin 32.3 PG (26-34); Mean Corpuscular Volume 91.8 fL (80-100); Platelet Count 63 X10^3/uL (150-400); Red Blood Cell Count 2.63 X10^6/uL (4.5-5.9); Red Cell Distribution Width 15.7 % (11.6-14.8); White Blood Cell Count 2.6 X10^3/uL (4.5-11.0)
[2020-02-08 06:41] LABS: Add Manual Diff / Slide Review YES
[2020-02-08 07:53] LABS: Neutrophils Absolute Manual 1014 /uL (3000-5900); Nucleated Red Blood Cells 1 #/Diff; Total Cells Counted 100
[2020-02-08 07:54] LABS: RBC Morphology Normal Morphology
[2020-02-08 08:00] VITALS: BP 140/80; PULSE 65; RESP 16; TEMP 36.2; O2SAT 95
--- NOTE | 2020-02-08 08:57 | PM.PN.1 ---
Subjective Subjective Date Patient Seen: 02/08/20 Time Patient Seen: 08:57 Exam Vital Signs (past 8 hours): - 02/08/20 01:36 Temperature 98.1 F Pulse Rate 72 Respiratory Rate 19 Blood Pressure 145/90 H Oxygen Delivery Method Room Air Oxygen Flow Rate 0 Narrative Exam Narrative: GENERAL: Alert and oriented, appearing stated age and in no acute distress. HEENT: Head normocephalic/atraumatic. Pupils equal, round, and reactive to light and accomodation. Extraocular muscles intact. Tympanic membranes clear. Nasal mucosa moist, septum midline. Oral mucosa moist, no lesions. Neck soft and supple, no lymphadenopathy. LUNGS: Clear to ausculation bilaterally, no wheezes, rhonchi or rales. CV: Irregularly irregular, no audible murmurs, rubs or gallops. ABDOMEN: Soft, non-tender, non-distended, no organomegaly. Positive bowel sounds. EXTREMITIES: No clubbing, cyanosis, or edema. NEURO: Cranial nerves II through XII grossly intact, no focal deficits. PSYCH: Alert and oriented x 3. SKIN: No concerning lesions. Port-a-cath bandage in place, c/d/i. Objective Labs Result Diagrams: 02/08/20 05:15 02/08/20 05:15 Labs: Laboratory Results - last 24 hr 02/06/20 02/07/20 02/07/20 16:20 05:03 05:03 WBC RBC Hgb Hct MCV MCH MCHC RDW Plt Count Neut % (Auto) Lymph % (Auto) [place] % (Auto) Eos % (Auto) Baso % (Auto) Lymph # (Auto) [place] # (Auto) Baso # (Auto) Total Counted Seg Neutrophils % Band Neutrophils % Lymphocytes % (Manual) Atypical Lymphs % Monocytes % (Manual) Eosinophils % (Manual) Basophils % (Manual) Metamyelocytes % Neutrophils # (Manual) Nucleated RBCs RBC Morphology Normal morphology Sodium Potassium Chloride Carbon Dioxide BUN Creatinine Estimated GFR BUN/Creatinine Ratio Glucose Hemoglobin A1c Calcium Total Bilirubin AST ALT 24 22 Alkaline Phosphatase Total Creatine Kinase CK-MB (CK-2) CK-MB (CK-2) Rel Index Troponin I Total Protein Albumin Globulin Albumin/Globulin Ratio Blood Type Antibody Screen Crossmatch 02/07/20 02/08/20 02/08/20 14:40 05:15 05:15 WBC RBC Hgb Hct MCV MCH MCHC RDW Plt Count Neut % (Auto) Lymph % (Auto) [place] % (Auto) Eos % (Auto) Baso % (Auto) Lymph # (Auto) [place] # (Auto) Baso # (Auto) Total Counted Seg Neutrophils % Band Neutrophils % Lymphocytes % (Manual) Atypical Lymphs % Monocytes % (Manual) Eosinophils % (Manual) Basophils % (Manual) Metamyelocytes % Neutrophils # (Manual) Nucleated RBCs RBC Morphology Sodium 140 Potassium 3.9 Chloride 106 Carbon Dioxide 29 BUN 27 H Creatinine 2.08 H Estimated GFR 31.3 L BUN/Creatinine Ratio 13.0 Glucose 100 Hemoglobin A1c 6.8 H Calcium 10.6 H Total Bilirubin 0.6 AST 32 ALT 22 Alkaline Phosphatase 82 Total Creatine Kinase CK-MB (CK-2) CK-MB (CK-2) Rel Index Troponin I Total Protein 6.3 Albumin 3.1 L Globulin 3.2 Albumin/Globulin Ratio 1.0 Blood Type A Positive Antibody Screen Negative Crossmatch See Detail 02/08/20 02/08/20 05:15 05:15 WBC 2.6 L RBC 2.63 L Hgb 8.5 L Hct 24.2 L MCV 91.8 MCH 32.3 MCHC 35.1 RDW 15.7 H Plt Count 63 L Neut % (Auto) Not Reportable Lymph % (Auto) Not Reportable [place] % (Auto) Not Reportable Eos % (Auto) Not Reportable Baso % (Auto) Not Reportable Lymph # (Auto) Not Reportable [place] # (Auto) Not Reportable Baso # (Auto) Not Reportable Total Counted 100 Seg Neutrophils % 33.0 L Band Neutrophils % 6.0 Lymphocytes % (Manual) 39.0 Atypical Lymphs % 4.0 H Monocytes % (Manual) 15.0 H Eosinophils % (Manual) 1.0 L Basophils % (Manual) 1.0 Metamyelocytes % 1.0 H Neutrophils # (Manual) 1014 L Nucleated RBCs 1 H RBC Morphology Normal morphology Sodium Potassium Chloride Carbon Dioxide BUN Creatinine Estimated GFR BUN/Creatinine Ratio Glucose Hemoglobin A1c Calcium Total Bilirubin AST ALT Alkaline Phosphatase Total Creatine Kinase 98 CK-MB (CK-2) TNP CK-MB (CK-2) Rel Index TNP Troponin I 0.197 H* Total Protein Albumin Globulin Albumin/Globulin Ratio Blood Type Antibody Screen Crossmatch Assessment & Plan Assessment & Plan narrative: 1. Rule out [place], elevated troponin x 3, acute. -Patient currently denies chest pain and is not dyspneic at rest. -EKG in ED showed no ST elevation or depression. -Dr. Cruz, on-call wig stylist consulted regarding elevated troponins. -Secondary to patient's acute on chronic renal failure, Dr. Cruz felt that troponins are more likely due to renal function rather than cardiac function. -Echo , EF 55-60%, no significant change from 2018. -CK 96 in ED. PLAN: -Dr. Schmitt, recommended a follow-up CK to confirm that values are not climbing. Will check CK along with CK-MB and additional troponin in the morning. Possible need for repeat echo and stress test while inpatient, already scheduled later this week as an outpatient. -Will continue telemetry, EKG in am. -Nitroglycerin/morphine prn. 2. Pancytopenia, acute, worsening in last 3 months -Anemia, normocytic/normochromic H/H: 7.1/20.8 -Thrombocytopenia: 39 -Leukopenia with absolute neutrophil count of 1133 -Dr. Ron, oncology consulted. He recommended a blood transfusion to keep hematocrit greater than 25, platelet transfusion to keep platelets above 50, and Neupogen if ANC falls below 1000. Also recommended updating serum IgG. PLAN: -2 units of packed red blood cells platelet infusion. -Will trend labs in the morning: CBC, serum IgG 3. Congestive heart failure with preserved ejection fraction, acute on chronic -Secondary to atrial fibrillation. -Echo on , EF 55-60%, no significant change from 2018. -BNP 790. -Dr. Carballo, cardiology, outpatient physician practice consultant. PLAN: -Continue home torsemide 20 mg p.o. q.day. -Repeat BNP in am. -Scheduled for outpatient echo this week, possible need for inpatient echo depending on troponins. 4. Atrial fibrillation, chronic with acute bradycardia in ED, now improving. -Rate-controlled with carvedilol 6.25 mg p.o. b.i.d. -Anticoagulated on Eliquis 2.5 mg p.o. b.i.d. Takes potassium daily. PLAN: -Continue home medications and telemetry. 5. Multiple myeloma, chronic -Dr. Ron consulting, currently undergoing chemotherapy. -Port recently placed by Dr. Freed, 01/22/20. ED staff had difficulty accessing port. PLAN: -Will contact Dr. Freed regarding checking patient's port. -Will continue to coordinate care with Dr. Ron. 6. Renal failure, G3B, acute on chronic, present on admission -Recent drop from GFR >50 to GFR around 30 in the last 3 months. -Undergoing chemotherapy. PLAN: -Will trend labs. 7. Hypoalbuminemia, worsening in last 3 months -Baseline albumin 4.0, now 3.3 in the last 3 months. -Likely multifactorial etiology from renal failure, chemotherapy infusions, to chronic disease. PLAN: -Will focus on volume resuscitation with PRBC/platelet infusions and reassess labs in the morning. 8. Diabetes mellitus type 2, insulin-dependent, chronic -A1c 6.3 on 09/11/19. PLAN: -Continue home medications. -Will update A1c. 9. Hypertension, chronic -Generally well controlled in the outpatient setting on carvedilol 6.25 mg p.o. b.i.d. Now 130-150s/50-90s. -Likely multifactorial etiology from diabetes mellitus type 2, chronic kidney disease, multiple myeloma, chemotherapy. Plan: -Fluid resuscitation to bring hemoglobin/hematocrit levels towards normal. -Will continue home medications in the meantime. - 10. History of blood clots, left leg, lungs PLAN: Eliquis. 11. Post herpetic neuralgia, chronic PLAN: Continue home gabapentin. 12. 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 13. PTSD, chronic PLAN: Continue home lorazepam 0.5 mg PO qhs, prn. DVT prophylaxis: Home Eliquis. Code: Full Disposition: Anticipate 24-48 hour stay Quality VTE Deep Vein Thrombosis/Pulmonary Embolism Present on Admission: No
[2020-02-08] MEDS: carvediloL 6.25 MG TABLET PO (10:06)
[2020-02-08] MEDS: METFORMIN HCL 500 MG TABLET 1000 MG PO (10:06)
[2020-02-08] MEDS: POTASSIUM CHLORIDE 10 MEQ TAB PO (10:07)
[2020-02-08] MEDS: ACYCLOVIR 400 MG TABLET 800 MG PO (10:07)
[2020-02-08] MEDS: SODIUM CHLORIDE 0.9% FLUSH 10 ML IV (10:08)
[2020-02-08] MEDS: TORSEMIDE 10 MG TABLET 20 MG PO (10:09)
[2020-02-08 11:35] VITALS: BP 138/84; PULSE 62; RESP 16; TEMP 36.2; O2SAT 94
--- NOTE | 2020-02-08 13:11 | P.DS_ITS ---
History of Present Illness History of Present Illness Date Patient Seen: 02/08/20 Time Patient Seen: 13:11 Chief complaint: Low Heart Rate, Sent From [facility] Narrative: This 74-year-old male with history of multiple myeloma and currently undergoing chemotherapy, Dr. Ron consulting, was admitted overnight for an elevated troponin, and pancytopenia. Patient has had 2 ED visits in the last 8 days for dyspnea, weakness, and fatigue. He was sent to the ED this time by Dr. Freed after he was found to be bradycardic and irregular in the office where he was getting his recently-placed port checked. He is scheduled for an outpatient echocardiogram and stress test, Dr. Carballo consulting. Denies chest pain. Medical history significant for CHF, atrial fibrillation, as well as clots in the lungs and legs, anticoagulated on Eliquis. Workup in the ED significant for a pancytopenia with a normocytic/normochromic anemia. Troponins were elevated x 3: 0.123, 0.150, and 0.165. Elevated creatinine at 2.02 (baseline 1.2), elevated BNP 790, albumin low at 3.3. Absolute neutrophil count was low at 1133. Chest x-ray showed left diaphragm elevation and left basilar atelectasis. COVID screen was notably negative. Discharge Providers Provider Date of admission: 02/06/20 18:15 Discharge Date: 02/08/20 Primary care physician: Arnold Yanez MD Consults: 02/07/20 12:21 Consult to Discharge Planning Routine Comment: Consult to Physician Routine Comment: Consulting Provider: Molly Carballo Reason for consultation: cardiology 02/07/20 12:24 Consult to Oncology Routine Comment: Consulting Provider: Shelley Ron Reason for consultation: Multiple myeloma Has provider been notified: Yes Discharge provider: Brooklyn Garcia MD Summary Hospital Course Discharge Diagnosis: 1. Rule out AL, elevated troponin x 4, normal CPK, likley due to acute on chronic renal failure 2. Pancytopenia, acute, worsening in last 3 months, improved status post trans fusion 3. Congestive heart failure with preserved ejection fraction, acute on chronic 4. Atrial fibrillation, chronic with acute bradycardia in ED, resolved. 5. Multiple myeloma, chronic 6. Renal failure, G3B, acute on chronic, present on admission 7. Hypoalbuminemia, worsening in last 3 months 8. Diabetes mellitus type 2, insulin-dependent, chronic 9. Hypertension, chronic 10. History of blood clots, left leg, lungs 11. Post herpetic neuralgia, chronic 12. 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 PTSD, chronic Hospital Course: Patient was admitted and transfused 2 units of packed red blood cells and 1 unit of platelets. [place] much better status post transfusion. Post transfusion labs revealed an H/H of 8.5/24.2 and platelets of 63, at goal. Absolute neutrophil count was borderline this morning at 1014. Patient will return tomorrow morning for a repeat ANC lab, possible need for neupogen over the weekend. A fourth troponin was checked and it was again elevated at 0.197 but Total CK remained normal at [address] changes were seen on 12 lead EKG on morning of discharge. Troponin elevation likely secondary to patient's acute on chronic renal failure. Patient has follow-up with oncology Wednesday, 5 days from now, and Cardiology in 1 week. Will also see his primary care physician, Dr. Yanez in the following week for a discharge follow-up. Time spent on Discharge and Coordination of post-hospital care: 35 minutes Exam Vital Signs (past 8 hours): - 02/08/20 08:00 02/08/20 11:35 Temperature 97.2 F L 97.2 F L Pulse Rate 65 62 Respiratory Rate 16 16 Blood Pressure 140/80 138/84 Pulse Oximetry 95 94 Oxygen Delivery Method Room Air Oxygen Flow Rate 0 Narrative Exam Narrative: GENERAL: Alert and oriented, appearing stated age and in no acute distress. HEENT: Head normocephalic/atraumatic. Pupils equal, round, and reactive to light and accomodation. Extraocular muscles intact. Tympanic membranes clear. Nasal mucosa moist, septum midline. Oral mucosa moist, no lesions. Neck soft and supple, no lymphadenopathy. LUNGS: Clear to ausculation bilaterally, no wheezes, rhonchi or rales. CV: Irregularly irregular, no audible murmurs, rubs or gallops. ABDOMEN: Soft, non-tender, non-distended, no organomegaly. Positive bowel sounds. EXTREMITIES: No clubbing, cyanosis, or edema. NEURO: Cranial nerves II through XII grossly intact, no focal deficits. PSYCH: Alert and oriented x 3. SKIN: No concerning lesions. Port-a-cath bandage in place, c/d/i. Objective Labs Result Diagrams: 02/08/20 05:15 02/08/20 05:15 Labs: Laboratory Results - last 24 hr 02/06/20 02/07/20 02/07/20 16:20 05:03 14:40 WBC RBC Hgb Hct MCV MCH MCHC RDW Plt Count Neut % (Auto) Lymph % (Auto) [place] % (Auto) Eos % (Auto) Baso % (Auto) Lymph # (Auto) [place] # (Auto) Baso # (Auto) Total Counted Seg Neutrophils % Band Neutrophils % Lymphocytes % (Manual) Atypical Lymphs % Monocytes % (Manual) Eosinophils % (Manual) Basophils % (Manual) Metamyelocytes % Neutrophils # (Manual) Nucleated RBCs RBC Morphology Sodium Potassium Chloride Carbon Dioxide BUN Creatinine Estimated GFR BUN/Creatinine Ratio Glucose Hemoglobin A1c Calcium Total Bilirubin AST ALT 24 22 Alkaline Phosphatase Total Creatine Kinase CK-MB (CK-2) CK-MB (CK-2) Rel Index Troponin I Total Protein Albumin Globulin Albumin/Globulin Ratio Blood Type A Positive Antibody Screen Negative Crossmatch See Detail 02/08/20 02/08/20 02/08/20 05:15 05:15 05:15 WBC RBC Hgb Hct MCV MCH MCHC RDW Plt Count Neut % (Auto) Lymph % (Auto) [place] % (Auto) Eos % (Auto) Baso % (Auto) Lymph # (Auto) [place] # (Auto) Baso # (Auto) Total Counted Seg Neutrophils % Band Neutrophils % Lymphocytes % (Manual) Atypical Lymphs % Monocytes % (Manual) Eosinophils % (Manual) Basophils % (Manual) Metamyelocytes % Neutrophils # (Manual) Nucleated RBCs RBC Morphology Sodium 140 Potassium 3.9 Chloride 106 Carbon Dioxide 29 BUN 27 H Creatinine 2.08 H Estimated GFR 31.3 L BUN/Creatinine Ratio 13.0 Glucose 100 Hemoglobin A1c 6.8 H Calcium 10.6 H Total Bilirubin 0.6 AST 32 ALT 22 Alkaline Phosphatase 82 Total Creatine Kinase 98 CK-MB (CK-2) TNP CK-MB (CK-2) Rel Index TNP Troponin I 0.197 H* Total Protein 6.3 Albumin 3.1 L Globulin 3.2 Albumin/Globulin Ratio 1.0 Blood Type Antibody Screen Crossmatch 02/08/20 05:15 WBC 2.6 L RBC 2.63 L Hgb 8.5 L Hct 24.2 L MCV 91.8 MCH 32.3 MCHC 35.1 RDW 15.7 H Plt Count 63 L Neut % (Auto) Not Reportable Lymph % (Auto) Not Reportable [place] % (Auto) Not Reportable Eos % (Auto) Not Reportable Baso % (Auto) Not Reportable Lymph # (Auto) Not Reportable [place] # (Auto) Not Reportable Baso # (Auto) Not Reportable Total Counted 100 Seg Neutrophils % 33.0 L Band Neutrophils % 6.0 Lymphocytes % (Manual) 39.0 Atypical Lymphs % 4.0 H Monocytes % (Manual) 15.0 H Eosinophils % (Manual) 1.0 L Basophils % (Manual) 1.0 Metamyelocytes % 1.0 H Neutrophils # (Manual) 1014 L Nucleated RBCs 1 H RBC Morphology Normal morphology Sodium Potassium Chloride Carbon Dioxide BUN Creatinine Estimated GFR BUN/Creatinine Ratio Glucose Hemoglobin A1c Calcium Total Bilirubin AST ALT Alkaline Phosphatase Total Creatine Kinase CK-MB (CK-2) CK-MB (CK-2) Rel Index Troponin I Total Protein Albumin Globulin Albumin/Globulin Ratio Blood Type Antibody Screen Crossmatch Discharge Plan Discharge Plan Patient Disposition: Home Discharge orders & Medications Prescriptions: New torsemide 10 mg Tablet 20 mg PO DAILY Qty: 30 RF: 0 Continued metformin [Glucophage] 1,000 MG tablet 1,000 mg PO BIDCC Qty: 0 RF: 0 Lantus U-100 Insulin 100 UNIT/1 ML solution 25 unit SQ QDAY Qty: 0 RF: 0 potassium chloride 10 mEq Tablet Extended Release 10 meq PO DAILY RF: 0 gabapentin 600 mg Tablet 1,200 mg PO DAILY RF: 0 carvedilol 6.25 mg Tablet 6.25 mg PO BID RF: 0 Eliquis 2.5 mg Tablet 2.5 mg PO BID Qty: 60 RF: 6 acyclovir 800 mg Tablet 800 mg PO BID 90 Days Qty: 180 RF: 0 ondansetron HCl [Zofran] 4 mg Tablet 4 mg PO Q6H Qty: 60 RF: 0 dexamethasone 4 mg Tablet 12 mg PO WEEKLY Qty: 40 RF: 3 lorazepam [Ativan] 0.5 mg tablet 0.5 mg PO BEDTIME PRN (Reason: Sleep) Qty: 30 RF: 0 Follow up/Referrals: Arnold Yanez MD [Primary Care Provider] - Diet/Activity/Treatments Diet: Diet as Tolerated and Carb-consistent/Diabetic Activity: as tolerated Skin/Wound/Dressing Care Report to your healthcare provider any signs of infection, such as:: chills, fever, night sweats and increased pain Visit Report/Discharge Packet Instructions: DI for Blood Transfusion Visit Report Forms: Patient Portal/API, Stroke Signs & Symptoms Discharge Data Primary Care Provider: Arnold Yanez Attending Provider: Arnold Yanez Admit Date/Time: 02/06/20 18:15 Discharges patient from system. Discharge Date/Time: 02/08/20 16:15 Quality VTE Deep Vein Thrombosis/Pulmonary Embolism Present on Admission: No
--- NOTE | 2020-02-08 16:42 | CM.DANOTE ---
Discharge Note Patient A&O, VSS, no complaints of pain or discomfort. Discharge instructions given by this RN to patient along with follow-up instructions, no questions or concerns. Telemetry and PIV discontinued. All belongings and discharge instructions given to . Patient take down to POV via wheelchair by COURT ORDERLY.
[2020-02-09 06:05] LABS: Immunoglobulin G, Quantitative 125 mg/dL (603-1613)
--- NOTE | 2020-02-14 16:45 | PC.NURSE ---
Late Entry: NS initiated 02/06 at 16:27, complete 02/07 at 03:22.
== END 2020-02-08 16:15 | disposition home or self-care (01) ==
LOC: ED 15:31 → AC 18:15
PROVIDERS: Student in an Organized Health Care Education/Training Program; Admitting Provider Family Medicine; Emergency Provider Emergency Medicine; PCP Family Medicine; Referring Provider Emergency Medicine; Visit Provider Family Medicine
DX: I49.9 Cardiac arrhythmia, unspecified (principal); C90.00 Multiple myeloma not having achieved remission; D61.818 Other pancytopenia; I48.20 Chronic atrial fibrillation, unspecified; N18.9 Chronic kidney disease, unspecified; Z79.01 Long term (current) use of anticoagulants; E88.09 Other disorders of plasma-protein metabolism, not elsewhere classified; E11.9 Type 2 diabetes mellitus without complications; Z79.4 Long term (current) use of insulin; I10 Essential (primary) hypertension; Z86.718 Personal history of other venous thrombosis and embolism; Z86.711 Personal history of pulmonary embolism; B02.29 Other postherpetic nervous system involvement; F43.12 Post-traumatic stress disorder, chronic; D64.9 Anemia, unspecified; Z11.59 Encounter for screening for other viral diseases
CPT/HCPCS: 36415; 36430; 71045; 80053; 82550; 82784; 82962; 83036; 83690; 83880; 84484; 85025; 85610; 85730; 86850; 86900; 86901; 87635; 93005; 93010; 96361; 96374; 96375; 99284; G0378; P9016; J1200; J1940; P9035

== ENCOUNTER → 2020-02-09 15:58 | Outpatient (CLI) | payer MEDICARE, SELFPAY ==
[2020-02-06 19:12] VITALS: BMI 29.4
--- NOTE | 2020-02-09 16:30 | DI.ECHO.S_ITS ---
Echocardiogram Report + + :Name: KAYLEN VASQUEZ Study Date: 02/09/2020 Height: 76 in : :[facility] Weight: 242 lb : : Gender: Male BSA: 2.4 m2 : :: 1945 Age: 74 yrs BP: 124/62 mmHg: :Reason For Study: SOB : :Ordering Physician: Molly : :Tuan Carballo Performed By: Enriqueta Gutierrez : + + Interpretation Summary The left ventricle is normal in size. The ejection fraction is estimated to be 55-60%. There has been no significant change in LVEF since the previous exam. The right ventricle is at the upper limits of normal in size. The right ventricular systolic function is normal. No significant valvular pathology seen. The aortic arch is mildly enlarged. Procedure: A two-dimensional transthoracic echocardiogram with color flow and Doppler was performed. The study quality was technically adequate. Comparison is made with the echocardiogram of 05/26/2019. The patient had frequent PACs during the exam. The patient was in normal sinus rhythm during the exam. Left Ventricle: There is mild concentric left ventricular hypertrophy. The left ventricle is normal in size. There is no thrombus. The ejection fraction is estimated to be 55-60%. There has been no significant change since the previous exam. Septal motion is consistent with conduction abnormality. Diastolic parameters suggest a relaxation abnormality of the left ventricle, consistent with probable normal filling pressures. Right Ventricle: The right ventricle is at the upper limits of normal in size. The right ventricular systolic function is normal. Atria: The left atrium is severely dilated. The left atrium has mildly increased in size since the prior echo exam. Right atrial size is normal. There is no Doppler evidence for an interatrial shunt. Mitral Valve: The mitral valve leaflets are mildly calcified. There is mild to moderate mitral annular calcification. The mitral valve chordae are thickened and/or calcified. There is trace mitral regurgitation. Aortic Valve: The aortic valve is trileaflet. The aortic valve opens well. There is mild aortic valve sclerosis. There is no aortic valve stenosis. No aortic regurgitation is present. Tricuspid Valve: The tricuspid valve is normal in structure and function. There is a trace or physiologic amount of tricuspid regurgitation. Pulmonary artery pressures cannot be estimated because of the lack of a measurable TR jet velocity. Pulmonic Valve: The pulmonic valve is normal in structure and function. There is a trace or physiologic amount of pulmonic regurgitation. Great Vessels: The aortic root is mildly dilated. The ascending aorta is at the upper limits of normal in size. The aortic arch is mildly enlarged. The IVC is of normal diameter and collapses greater than 50% with a sniff. This suggests a low right atrial pressure of 3 mm Hg. MMode/2D Measurements & Calculations LVIDd: 4.8 cm LVOT diam: 2.3 cm LVIDs: 2.8 cm Ao root diam: 4.4 cm FS: 40.6 % Aortic Jxn: 3.9 cm EPSS: 0.51 cm asc Aorta Diam: 3.8 cm IVSd: 1.3 cm Ao Arch Diam (Prox Trans): 3.7 cm LVPWd: 1.3 cm LV bryant. diameter/BSA (cm/m^2): 2.0 LV sys. diameter/BSA (cm/m^2): 1.2 LA A2 area: 28.9 cm2 RA long axis: 5.1 cm LA A4 area: 28.3 cm2 RA area: 16.8 cm2 LA length (vol): 5.4 cm RA vol: 47.1 ml LA vol: 129.0 ml RA : 19.6 ml/m2 LA vol index: 53.7 ml/m2 IVC diam: 1.6 cm RVD1 (basal): 4.2 cm TAPSE: 2.3 cm Doppler Measurements & Calculations Ao V2 max: 122.0 cm/sec LVOT Max Bill: 121.5 cm/sec Ao V2 mean: 87.2 cm/sec LV V1 max P.9 mmHg Ao max P.0 mmHg LV V1 VTI: 21.5 cm Ao mean P.4 mmHg TARA(I,D): 3.9 cm2 Ao V2 VTI: 22.9 cm TARA(V,D): 4.2 cm2 sev ratio: 0.94 TARA indexed to BSA (cm^2/m^2): 1.6 MV E max bill: 71.0 cm/sec PA V2 max: 72.0 cm/sec MV A max bill: 81.5 cm/sec PA V2 mean: 57.4 cm/sec MV E/A: 0.87 PA mean P.4 mmHg Med Peak E' Bill: 4.9 cm/sec PA Accel Time: 0.13 sec E/E' med: 14.4 Lat Peak E' Bill: 5.2 cm/sec E/E' lat: 13.6 E/e' average: 14.0 MV dec time: 0.26 sec MV P1/2t: 77.2 msec MV P1/2t max bill: 71.7 cm/sec SV(LVOT): 90.5 ml MVA(2t): 2.8 cm2 Reading Physician:01:[id number] PM
== END ==
PROVIDERS: PCP Family Medicine; Referring Provider Internal Medicine Cardiovascular Disease; Visit Provider Internal Medicine Cardiovascular Disease
DX: I35.8 Other nonrheumatic aortic valve disorders (principal); I77.810 Thoracic aortic ectasia; R06.02 Shortness of breath; R06.09 Other forms of dyspnea
CPT/HCPCS: 93306